=== PATIENT | female | born 1950 | race Caucasian/White ===

== ENCOUNTER → 2016-05-24 | Outpatient (CLI) | payer OTHER ==
[~2016-05-24] MED LIST: AMITRIPTYLINE H25 M2 PO; AMITRIPTYLINE H50 M2 PO; ATIVAN0.5 MG PO; BENICAR20 MG PO; CELEXA40 MG PO; CLEOCIN HCL300 MG PO; COZAAR100 MG PO; DULERA 200 MCG/13 GM; ESTRACE0.5 MG PO; ESTROGEL TOP; HYDROCODONE-APA1 TA1 PO; KLOR-CON 1010 MEQ PO; LEXAPRO20 MG PO; LORTAB 5 MG/5001 TA1 PO; LOSARTAN POTAS100 MG PO; NEXIUM20 MG PO; PANTOPRAZOLE SO40 M1 PO; PERCOCET 5-3251 EACH PO; PERCOCET PO; SANTYL OINTMENT30 G1 TOP; SILVADENE20 GM TOP; TESSALON PERLE100 MG PO; TRIAMTERENE-HC1 EAC1 PO; TRIAMTERENE/HCT1 CA1 PO; ZOCOR 20 MG TAB20 M1 PO; ZOCOR20 MG PO
== END ==
LOC: CAT 15:09
DX: R42 Dizziness and giddiness (principal); H44.529 Atrophy of globe, unspecified eye

== ENCOUNTER → 2016-07-31 | Outpatient (CLI) | payer OTHER | LOC: HYPER 07-26 12:43 | DX: T81.31XD Disruption of external operation (surgical) wound, not elsewhere classified, subsequent encounter (principal); M17.11 Unilateral primary osteoarthritis, right knee; Z90.710 Acquired absence of both cervix and uterus; Z87.891 Personal history of nicotine dependence; Z72.89 Other problems related to lifestyle; Y83.8 Other surgical procedures as the cause of abnormal reaction of the patient, or of later complication, without mention of misadventure at the time of the procedure ==

== ENCOUNTER → 2016-08-18 | Outpatient (CLI) | payer OTHER | LOC: ULTRA 13:52 | DX: K80.20 Calculus of gallbladder without cholecystitis without obstruction (principal); N26.1 Atrophy of kidney (terminal); N28.1 Cyst of kidney, acquired; R79.89 Other specified abnormal findings of blood chemistry; R94.4 Abnormal results of kidney function studies ==

== ENCOUNTER → 2016-08-23 | Outpatient (CLI) | payer OTHER | LOC: HYPER 07:07 | DX: T81.31XA Disruption of external operation (surgical) wound, not elsewhere classified, initial encounter (principal); M17.11 Unilateral primary osteoarthritis, right knee; Z72.89 Other problems related to lifestyle; Y83.8 Other surgical procedures as the cause of abnormal reaction of the patient, or of later complication, without mention of misadventure at the time of the procedure ==

== ENCOUNTER → 2016-08-25 | Outpatient (CLI) | payer OTHER | LOC: ULTRA 13:04 | DX: H53.9 Unspecified visual disturbance (principal) ==

== ENCOUNTER → 2016-08-31 | Outpatient (CLI) | payer OTHER | LOC: HYPER 07:08 | DX: T81.31XD Disruption of external operation (surgical) wound, not elsewhere classified, subsequent encounter (principal); M17.11 Unilateral primary osteoarthritis, right knee; Z90.710 Acquired absence of both cervix and uterus; Z87.891 Personal history of nicotine dependence; Z72.89 Other problems related to lifestyle; Y83.8 Other surgical procedures as the cause of abnormal reaction of the patient, or of later complication, without mention of misadventure at the time of the procedure | CPT/HCPCS: 56524 ==

== ENCOUNTER → 2016-09-06 | Outpatient (CLI) | payer OTHER | LOC: HYPER 07:11 | DX: T81.31XD Disruption of external operation (surgical) wound, not elsewhere classified, subsequent encounter (principal); S82.852D Displaced trimalleolar fracture of left lower leg, subsequent encounter for closed fracture with routine healing; M17.11 Unilateral primary osteoarthritis, right knee; Z72.89 Other problems related to lifestyle; X58.XXXD Exposure to other specified factors, subsequent encounter; Y83.8 Other surgical procedures as the cause of abnormal reaction of the patient, or of later complication, without mention of misadventure at the time of the procedure ==

== ENCOUNTER → 2016-09-13 | Outpatient (CLI) | payer OTHER | LOC: HYPER 07:05 | DX: T81.31XA Disruption of external operation (surgical) wound, not elsewhere classified, initial encounter (principal); S82.852D Displaced trimalleolar fracture of left lower leg, subsequent encounter for closed fracture with routine healing; S91.302D Unspecified open wound, left foot, subsequent encounter; M17.11 Unilateral primary osteoarthritis, right knee; F15.90 Other stimulant use, unspecified, uncomplicated; Z72.89 Other problems related to lifestyle; W19.XXXD Unspecified fall, subsequent encounter; Y83.8 Other surgical procedures as the cause of abnormal reaction of the patient, or of later complication, without mention of misadventure at the time of the procedure ==

== ENCOUNTER → 2016-10-10 | Outpatient (CLI) | payer OTHER | LOC: HYPER 07:16 | DX: T81.31XD Disruption of external operation (surgical) wound, not elsewhere classified, subsequent encounter (principal); M17.11 Unilateral primary osteoarthritis, right knee; Z87.891 Personal history of nicotine dependence; Z72.89 Other problems related to lifestyle; Z90.710 Acquired absence of both cervix and uterus; Y83.8 Other surgical procedures as the cause of abnormal reaction of the patient, or of later complication, without mention of misadventure at the time of the procedure ==

== ENCOUNTER → 2016-11-06 | Outpatient (CLI) | payer OTHER | LOC: HYPER 06:58 | DX: T81.31XD Disruption of external operation (surgical) wound, not elsewhere classified, subsequent encounter (principal); S91.302D Unspecified open wound, left foot, subsequent encounter; S82.852D Displaced trimalleolar fracture of left lower leg, subsequent encounter for closed fracture with routine healing; M17.11 Unilateral primary osteoarthritis, right knee; Z72.89 Other problems related to lifestyle; Z90.710 Acquired absence of both cervix and uterus; X58.XXXD Exposure to other specified factors, subsequent encounter; Y83.8 Other surgical procedures as the cause of abnormal reaction of the patient, or of later complication, without mention of misadventure at the time of the procedure ==

== ENCOUNTER → 2017-03-02 | Outpatient (CLI) | payer OTHER | LOC: ULTRA 14:25 | DX: R22.41 Localized swelling, mass and lump, right lower limb (principal) ==

== ENCOUNTER → 2017-05-31 | Outpatient (CLI) | payer OTHER ==
[~2017-05-31] MED LIST changes: +ACETAMINOPHEN-1 EAC1 PO; +NORCO 5-325 TA1 EACH PO; +WELLBUTRIN SR150 MG PO
== END ==
LOC: RAD 09:46
DX: M47.894 Other spondylosis, thoracic region (principal); M41.84 Other forms of scoliosis, thoracic region

== ENCOUNTER 2017-06-05 16:32 | Inpatient (IN) | payer OTHER ==
[~2017-06-05] VITALS: Ht 152.4 cm; Wt 63.6 kg
--- NOTE | ~2017-06-05 | HC ---
[facility] [place] [address] CONSULTATION Name: ALEXANDRIA SMITH Room #: 241-P [facility] IN M.R.#: [id number] Admission: 06/05/17 Attend Phys: Loco Sullivan MD Discharge: Date of : 48 Report #: [id number] THIS REPORT FOR: //name// CC: Lb Sullivan DATE OF SERVICE: 06/09/2017 REFERRING PHYSICIAN: Dr. Loco Sullivan. REASON FOR REFERRAL: Acute respiratory failure. HISTORY OF PRESENT ILLNESS: The patient is a 66-year-old white female who was admitted on 06/05/2017 following a fall. She was found to be in acute on chronic renal failure with severe metabolic acidosis, along with altered mental status. With ongoing respiratory distress, a Pulmonary consultation was requested. The patient is known to this physician. She has been seen in the office in the past for I believe asthma. She has not been seen over the last several months. The patient has never smoked. Review of the records showed that patient has had few hospitalizations in the past where she presents with renal insufficiency along with metabolic acidosis. She has a history of multidrug abuse including cocaine, marijuana, and alcohol. On this occasion, the patient was found to be down on the bedroom. She apparently fell. It is unclear how long the patient has laid on the floor. She has had trouble with falls in the past. Since hospitalization, the patient was found to have rhabdomyolysis with elevated CPK, acute on chronic renal failure requiring hemodialysis. Profound metabolic acidosis that has improved somewhat. Since hospital stay, she remains encephalopathic, confused, tachypneic. Earlier today, she started to develop bronchospasm. At present, I am not able to obtain much history. She is awake. She appears to be in mild distress. PAST MEDICAL HISTORY: As mentioned above including long history of hypertension, chronic kidney disease, history of polysubstance abuse including cocaine, alcohol, and marijuana. 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 She is followed longitudinally by renal service, history of multiple falls sustaining bilateral ankle fractures, closed head trauma. [facility] [address] [place] [address] CONSULTATION Name: ALEXANDRIA SMITH Room #: 241-P [facility] IN M.R.#: [id number] Admission: 06/05/17 Attend Phys: Loco Sullivan MD Discharge: Date of : 48 Report #: [id number] PAST SURGICAL HISTORY: Include cholecystectomy, prior bone marrow biopsy, past knee surgery, and bilateral breast reduction surgery. ALLERGIES: PENICILLIN, WHICH CAUSES HIVES. CURRENT MEDICATIONS: List reviewed. These include meropenem, Levaquin, thiamine, multivitamins, lorazepam. FAMILY HISTORY: Notable for hypertension in the father. SOCIAL HISTORY: She is , lives alone. She has children. Polysubstance abuse as mentioned above. REVIEW OF SYSTEMS: Deferred as the patient is confused. PHYSICAL EXAMINATION: GENERAL: She is awake, appears mildly tachypneic. VITAL SIGNS: Temperature is 97.8 degrees Fahrenheit, pulse is 110, respiratory rate is 26, blood pressure is 165/99 mmHg, saturations 100%. HEENT: Normocephalic, atraumatic. NECK: Supple without any lymphadenopathy or thyromegaly. CHEST: Breath sounds are fair with bilateral expiratory wheezes. Few scattered crackles. CARDIOVASCULAR: Normal S1, S2. No murmurs or gallop. There is no JVD. There is no carotid bruit. Pulses are 2+/4+ bilaterally. BREASTS: Exam is deferred. ABDOMEN: Mildly distended, soft, nontender. No organomegaly or masses felt. GENITOURINARY: Deferred. RECTAL: Deferred. EXTREMITIES: There is no edema, cyanosis or clubbing. LABORATORY DATA: Portable chest x-ray shows increased bilateral perihilar interstitial markings suggestive of congestive heart failure. This appears to be new since admission. Her recent CT abdomen and pelvis on admission shows fluid-filled mildly distended small bowel along with mild fluid filled nondistended colon suggestive of ileus. Hepatitis B screen was negative for hepatitis B surface antigen, surface antibody. Ammonia 17. IgG level was moderately low. C. diff toxin is negative. Hepatitis A is negative. Hepatitis C is negative. Stools for cultures so far has been negative. TSH is normal. Vitamin B12 is mildly elevated. Sodium 146, potassium 2.5, chloride 103, CO2 25, BUN is 14, creatinine is 1.4. On admission, creatinine was 6.5. Glucose 92. Liver function enzymes remains mildly elevated. Albumin 2.0. WBC 12,900, hemoglobin is 9.5, platelets are normal. No significant bandemia. Initial CPK was 9900, yesterday was 2500. Arterial blood gas on admission revealed pH 7.20, pCO2 of 16, pO2 of 103 on 2 liters of O2. Today, arterial blood gas shows pH [facility] [address] [place] [address] CONSULTATION Name: SIGHT,ALEXANDRIA Room #: 241-P ADM IN Geeta.Christophe.#: [id number] Admission: 06/05/17 Attend Phys: Loco Sullivan MD Discharge: Date of : 48 Report #: [id number] 7.56, pCO2 26, pO2 57 on 2 liters. Urine drug screen was positive for opiates. Alcohol level was less than 0. Urine drug screen: Cocaine was negative, along with negative for marijuana. IMPRESSION: 1. Acute hypoxic respiratory failure in this 66-year-old white female with multiple medical problems including metabolic acidosis along with acute on chronic renal failure. Chest x-ray shows increased interstitial marking suggestive of pulmonary edema. She has a history of asthma. Etiology likely related to pulmonary edema due to renal failure. Exacerbation of asthma is likely contributing. 2. Acute kidney injury/chronic kidney disease, underwent recent dialysis. 3. Metabolic acidosis improving with anion gap. 4. Rhabdomyolysis. 5. Elevated liver function enzymes, likely due to alcoholic liver disease. 6. 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 7. Polysubstance abuse including cocaine, alcohol, and marijuana. 8. Encephalopathy, multifactorial due to polysubstance abuse along with underlying sepsis syndrome. 9. Hypokalemia. 10. Severe protein-calorie malnutrition. 11. Long history of hypertension. 12. History of multiple falls, likely multifactorial, concerning is patient lives independently by herself. RECOMMENDATION: Agree with diuresis. May need hemodialysis if she does not respond to diuretics. Would also start corticosteroids and bronchodilators for presumed asthma exacerbation. We will continue alcohol withdrawal prophylaxis. Follow CPK along with renal function closely. DVT and GI prophylaxis will be addressed. Eventually, nutritional support will also need to be addressed. Thank you for this consultation. <ELECTRONICALLY SIGNED> By: Rafi Lowe MD 06/10/17 1602 [id number] MD cristóbal Miller
--- NOTE | ~2017-06-05 | HC ---
[facility] [place] [address] CONSULTATION Name: ALEXANDRIA SMITH Room #: 241-P ADM IN M.R.#: [id number] Admission: 06/05/17 Attend Phys: Loco Sullivan MD Discharge: Date of : 48 Report #: [id number] THIS REPORT FOR: //name// CC: Lb Sullivan REASON FOR PRESENTATION: Found down by her family members. REASON FOR CONSULTATION: Acute kidney injury. HISTORY OF PRESENT ILLNESS: This is a chronic kidney disease patient who sees Dr. Smith in my clinic. 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 She was evaluated numerous times by my team members back in June and in July 2016. She had a similar presentation in which she was found then to have an acute kidney injury with an elevated anion gap and managed accordingly. She has chronic hypertension. Baseline creatinine in the outpatient setting is around 2.5. Family brought her because of the details of the above-mentioned issues. On presentation, she was found to have a very high anion gap acidosis with high BUN and creatinine and was admitted for further evaluation and management. PAST MEDICAL HISTORY: 1. Repeated episodes of acute kidney injury. 2. Hypertension. 3. History of drug abuse. 4. Remote history of pancreatitis. 5. Iron-deficiency anemia. 6. Bone marrow biopsy. 7. Anemia. 8. Status post hysterectomy. 9. Knee surgery. 10. Bilateral reduction mammoplasties. ALLERGIES: PENICILLIN. FAMILY HISTORY: Father of hypertension. SOCIAL HISTORY: She is . No reported smoking, remote history of drug and alcohol abuse. REVIEW OF SYSTEMS: Unobtainable, the patient is currently disoriented x3. CURRENT MEDICATIONS: 1. Famotidine. 2. Lorazepam. 3. Meropenem. 4. Sodium bicarbonate. [facility] [address] [place] [address] CONSULTATION Name: ALEXANDRIA SMITH Room #: 241-P [facility] IN M.Christophe.#: [id number] Admission: 06/05/17 Attend Phys: Loco Sullivan MD Discharge: Date of : 48 Report #: [id number] PHYSICAL EXAMINATION: GENERAL: She is disoriented x3. VITAL SIGNS: There are some low blood pressure readings, temperature 37.2. HEAD AND NECK: No jugular venous distention, dry mucous membrane. CHEST: Decreased air entry bilaterally. CARDIOVASCULAR: Regular with no rub. ABDOMEN: Diffusely distended and tender. LOWER EXTREMITIES: No edema. LABORATORY VALUES: Reviewed. White blood cell count 13.4, hemoglobin 9.4. Blood gas pending. Sodium 129, potassium 3.4, chloride 93, carbon dioxide 11, BUN 106, creatinine 6.5. AST 290, ALT 169. IMAGING: Chest x-ray reviewed, no acute finding. ASSESSMENT, IMPRESSION, AND PLAN: 1. Acute kidney injury. 2. Rhabdomyolysis. 3. Stat labs. 4. Stat blood gas. 5. Stat CT abdomen and pelvis given her abdominal distention. 6. Continue with the bicarb drip for now. 7. Antibiotics per ID and primary team. Cultures were obtained. 8. Based on her blood gas and laboratory values, I will decide whether to escalate her care to an Intensive Care Unit or not. She seems to be critically ill. <ELECTRONICALLY SIGNED> By: Kamala Byrd MD 06/10/17 1703 [id number] Kamala Byrd MD /nt
--- NOTE | ~2017-06-05 | HC ---
[facility] [place] [address] CONSULTATION Name: ALEXANDRIA SMITH Room #: 241-P [facility] IN M.R.#: [id number] Admission: 06/05/17 Attend Phys: Loco Sullivan MD Discharge: 06/14/17 Date of : 48 Report #: [id number] THIS REPORT FOR: //name// CC: Lb Sullivan DATE OF SERVICE: 06/14/2017 HISTORY OF PRESENT ILLNESS: The patient is a 66-year-old white female admitted to [facility] with acute mental status changes, falls, was lying on the floor for questionable duration. She was noted to have acute renal insufficiency with severe metabolic acidosis and rhabdomyolysis. She was quite agitated and confused. She was seen by Neurology and diagnosed with a metabolic encephalopathy. She was seen by Nephrology and underwent one episode of dialysis to correct her acidosis. MRI of the brain is negative. She was noted to have a shock liver. Neurology has been involved regarding her encephalopathy, which is gradually improving. 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 She continues in the ICU, is gradually improving. We are seeing her in rehabilitation medicine consultation. She was noted to have some pulmonary edema, which has improved/resolved. Hypertension is much better on clonidine and amlodipine. She has elevated liver function tests, which are being followed by Gastroenterology. PAST MEDICAL HISTORY: Bilateral breast reduction. She had an infected right finger six years ago. She has had a hysterectomy. MEDICATIONS: Please see the full medication listing. HABITS: No history of tobacco abuse. She has had a prior history of alcohol abuse. Last time had alcohol about 60 days ago. There was a note of history of some cocaine abuse. There is a past history of alcohol use as noted above. ALLERGIES: PENICILLIN. SOCIAL HISTORY: She lives alone, house. Gait has been without gait aids. She had an ankle fracture approximately a year ago and used a wheelchair for the first 6 months, then used a walker and has not been utilizing anything, most recently. There are 2 steps in. REVIEW OF SYSTEMS: No current complaints of chest pain, shortness of breath, abdominal discomfort. Main complaint is significant weakness, upper and lower extremities and inability to ambulate. No focal extremity pain complaints. PHYSICAL EXAMINATION: [facility] [address] [place] [address] CONSULTATION Name: ALEXANDRIA SMITH Room #: 241-P [facility] IN M.R.#: [id number] Admission: 06/05/17 Attend Phys: Loco Sullivan MD Discharge: 06/14/17 Date of : 48 Report #: [id number] GENERAL: She is a pleasant 66-year-old, thin statured white female, in no obvious distress. VITAL SIGNS: Temperature is 97.6, pulse 79, respirations 11, blood pressure 162/80. NEUROLOGIC: She is alert. She could tell me the place and the year and she will follow basic 1 step commands. There is still some latency to her responses. Facies appeared symmetric. EXTREMITIES: Functional range of motion of both upper extremities. Appears to have some weakness of her left hand ulnar intrinsics probably a grade 4-. Left upper extremity proximally is more of a grade 4, right upper extremity is more of a grade 4. Lower extremity strength is probably a grade 3+/5. DTRs are trace to 1. There is no focal calf swelling. No distal lower extremity edema. She is mod assist with sit to stand, has decreased balance. ASSESSMENT: A 66-year-old white female with the following problem list: 1. Improving multifactorial encephalopathy thought to be toxic metabolic. 2. Critical illness myopathy. 3. Severe metabolic acidosis. 4. Rhabdomyolysis. 5. Shock liver. 6. 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 Left ulnar nerve per Neurology. 7. Aspiration. 8. Hypertension. 9. Acute renal insufficiency with creatinine improving. PLAN: The patient would be a good inpatient rehabilitation candidate as she further medically stabilizes. She is continuing in the Intensive Care Unit for now, but we will follow along regarding her rehab therapy progress. She appears amenable to an acute inpatient rehabilitation stay when further medically stabilized and cleared for transfer up to the [facility]hab [facility]. We will be glad to follow along with you. <ELECTRONICALLY SIGNED> By: Gerald Brown MD 06/19/17 1553 [id number] Gerald Brown MD /[facility]
[~2017-06-05 16:32] MED LIST changes: -ACETAMINOPHEN-1 EAC1 PO; -NORCO 5-325 TA1 EACH PO; -WELLBUTRIN SR150 MG PO
[2017-06-05 16:39] VITALS: BP 86/37
[2017-06-05 17:56] LABS: ABSOLUTE NEUTROPHILS 12.3 thou/uL (1.4-8.2); BASOPHILS 0.2 % (0.0-2.0); EOSINOPHILS 0.1 % (0.0-3.0); HEMATOCRIT 28.8 % (37.0-47.0); HEMOGLOBIN 9.4 gm/dL (12.0-15.0); LYMPHOCYTES 2.4 % (24.0-44.0); MCH 31.2 pg (26.0-34.0); MCHC 32.8 g/dL (28.0-37.0); MCV 95.2 fL (80.0-100.0); PLATELET COUNT 407 thou/uL (150-400); POLYS 91.3 % (36.0-66.0); RBC 3.02 mil/uL (4.20-5.00); RDW 18.4 % (10.5-14.5); WBC 13.4 thou/uL (4.0-11.0)
[2017-06-05 18:06] LABS: CREATININE 6.5 mg/dL (0.6-1.0); POTASSIUM 3.4 mmol/L (3.5-5.1)
[2017-06-05 18:12] LABS: ALBUMIN 3.1 g/dL (3.4-5.0); DIRECT BILIRUBIN 0.1 mg/dL (<0.1-0.3); TOTAL BILIRUBIN 0.5 mg/dL (<0.1-1.0); TOTAL PROTEIN 6.8 g/dL (6.4-8.2)
[2017-06-05 19:22] LABS: URINE BILIRUBIN NEGATIVE (Negative); URINE BLOOD 2+ (Negative); URINE CLARITY CLEAR; URINE COLOR YELLOW; URINE GLUCOSE-RANDOM* NEGATIVE (Negative); URINE KETONES NEGATIVE (Negative); URINE LEUKOCYTES-REFLEX NEGATIVE (Negative); URINE NITRITE-REFLEX NEGATIVE (Negative); URINE PROTEIN (DIPSTICK) NEGATIVE (Negative); URINE UROBILINOGEN 0.2 E.U./dl (0.2-1.0)
[2017-06-05 19:31] LABS: AMP/METHAMP Negative (Negative); BARBITURATES Negative (Negative); BENZODIAZEPINES Negative (Negative); COCAINE Negative (Negative); METHADONE Negative (Negative); OPIATES POSITIVE (Negative); PCP Negative (Negative)
[2017-06-05 19:34] LABS: HYALINE CASTS 0-3 Few /LPF (None Seen); MUCUS 0-3 Light strn/LPF (None Seen); SQUAMOUS 0-3 Few /LPF (0-3)
[2017-06-05 19:35] LABS: BACTERIA-REFLEX 1-9 Few /HPF (None Seen); URINE RBC 0-2 Rare /HPF (0-2); URINE WBC-REFLEX None Seen /HPF (0-5)
[2017-06-05 19:38] LABS: AMORPHOUS URATES Few /LPF (None Seen)
[2017-06-05 20:52] VITALS: BP 105/42
[2017-06-05 21:35] VITALS: BP 109/50
[2017-06-05 23:56] VITALS: BP 91/47
[2017-06-06] VITALS (53 sets, daily range): BP systolic 71–201; BP diastolic 32–172
[2017-06-06 07:38] LABS: HEMATOCRIT 26.5 % (37.0-47.0); HEMOGLOBIN 8.8 gm/dL (12.0-15.0); MCH 31.5 pg (26.0-34.0); MCHC 33.1 g/dL (28.0-37.0); MCV 95.2 fL (80.0-100.0); RBC 2.78 mil/uL (4.20-5.00); RDW 18.7 % (10.5-14.5); WBC 4.8 thou/uL (4.0-11.0)
[2017-06-06 07:46] LABS: CALCIUM 7.2 mg/dL (8.5-10.1); CREATININE 6.7 mg/dL (0.6-1.0); POTASSIUM 3.4 mmol/L (3.5-5.1)
[2017-06-06 07:50] LABS: ALBUMIN 2.5 g/dL (3.4-5.0); TOTAL BILIRUBIN 0.4 mg/dL (<0.1-1.0)
[2017-06-06 08:59] LABS: BE(vivo) -19.8 mmol/L (-2 to +3); HCO3 6.2 mmol/L (22.0-26.0); PCO2 16.3 mmHg (35.0-45.0); PO2 103.8 mmHg (80.0-100.0); pH 7.201 (7.360-7.450); sO2 96.7 % (92.0-98.0)
[2017-06-06 10:56] LABS: APTT 34.6 Seconds (24.5-32.8); INR 1.1
[2017-06-06 12:29] LABS: BE(vivo) -19.7 mmol/L (-2 to +3); HCO3 6.8 mmol/L (22.0-26.0); PCO2 18.7 mmHg (35.0-45.0); PO2 110.2 mmHg (80.0-100.0); pH 7.178 (7.360-7.450)
[2017-06-06 13:11] LABS: ALBUMIN 2.4 g/dL (3.4-5.0); CALCIUM 6.8 mg/dL (8.5-10.1); CREATININE 6.2 mg/dL (0.6-1.0); POTASSIUM 3.4 mmol/L (3.5-5.1); TOTAL BILIRUBIN 0.3 mg/dL (<0.1-1.0)
[2017-06-07] VITALS (36 sets, daily range): BP systolic 97–156; BP diastolic 49–103
[2017-06-07 05:30] LABS: HEMATOCRIT 24.5 % (37.0-47.0); HEMOGLOBIN 8.6 gm/dL (12.0-15.0); MCH 31.9 pg (26.0-34.0); MCV 91.1 fL (80.0-100.0); RBC 2.69 mil/uL (4.20-5.00); RDW 17.9 % (10.5-14.5); WBC 10.1 thou/uL (4.0-11.0)
[2017-06-07 05:43] LABS: CALCIUM 7.7 mg/dL (8.5-10.1); POTASSIUM 3.1 mmol/L (3.5-5.1); TOTAL BILIRUBIN 0.3 mg/dL (<0.1-1.0); TOTAL PROTEIN 5.6 g/dL (6.4-8.2)
[2017-06-07 05:45] LABS: CREATININE 1.2 mg/dL (0.6-1.0)
[2017-06-07 07:52] LABS: MAGNESIUM 1.7 mg/dL (1.8-2.4)
[2017-06-07 18:12] LABS: HEP B SURFACE Ab(ANTI-HBS Non Reactive (()); HEPATITIS B SURFACE AG Negative (Negative)
[2017-06-07 18:42] LABS: % SATURATION 6 % (20-39); IRON 13 ug/dL (50-170); TIBC 210 ug/dL (250-450)
[2017-06-08] VITALS (24 sets, daily range): BP systolic 127–172; BP diastolic 68–102
[2017-06-08 05:32] LABS: DIRECT BILIRUBIN < 0.1 mg/dL (<0.1-0.3); SGOT 149 U/L (15-37); SGPT 118 U/L (30-65); TOTAL BILIRUBIN 0.3 mg/dL (<0.1-1.0); TOTAL PROTEIN 5.4 g/dL (6.4-8.2)
[2017-06-08 05:43] LABS: ALBUMIN 2.1 g/dL (3.4-5.0); CREATININE 1.7 mg/dL (0.6-1.0); PHOSPHORUS 2.1 mg/dL (2.5-4.9)
[2017-06-08 05:54] LABS: POTASSIUM 2.7 mmol/L (3.5-5.1)
[2017-06-08 08:07] LABS: HAV IgM AB (ANTI-HAV IgM) Negative (Negative); HEPATITIS C VIRUS AB <0.1 (0.0-0.9)
[2017-06-08 12:08] LABS: HEMATOCRIT 27.1 % (37.0-47.0); HEMOGLOBIN 8.9 gm/dL (12.0-15.0); MCH 30.4 pg (26.0-34.0); MCHC 32.9 g/dL (28.0-37.0); MCV 92.4 fL (80.0-100.0); RBC 2.93 mil/uL (4.20-5.00); RDW 17.9 % (10.5-14.5)
[2017-06-09] VITALS (26 sets, daily range): BP systolic 146–175; BP diastolic 94–122
[2017-06-09 05:11] LABS: CALCIUM 7.6 mg/dL (8.5-10.1); CREATININE 1.4 mg/dL (0.6-1.0); PHOSPHORUS 2.2 mg/dL (2.5-4.9)
[2017-06-09 05:13] LABS: POTASSIUM 2.5 mmol/L (3.5-5.1)
[2017-06-09 10:07] LABS: HEMATOCRIT 27.6 % (37.0-47.0); MCH 30.6 pg (26.0-34.0); MCHC 32.7 g/dL (28.0-37.0); MCV 93.6 fL (80.0-100.0); RBC 2.95 mil/uL (4.20-5.00); WBC 12.5 thou/uL (4.0-11.0)
[2017-06-09 12:23] LABS: BE(vivo) 2.1 mmol/L (-2 to +3); HCO3 23.5 mmol/L (22.0-26.0); PCO2 26.3 mmHg (35.0-45.0); PO2 57.4 mmHg (80.0-100.0); pH 7.569 (7.360-7.450); sO2 93.8 % (92.0-98.0)
[2017-06-09 12:27] LABS: HEMATOCRIT 29.1 % (37.0-47.0); HEMOGLOBIN 9.5 gm/dL (12.0-15.0); MCH 30.5 pg (26.0-34.0); MCHC 32.7 g/dL (28.0-37.0); MCV 93.3 fL (80.0-100.0); PLATELET COUNT 375 thou/uL (150-400); RBC 3.12 mil/uL (4.20-5.00); RDW 18.1 % (10.5-14.5); WBC 12.9 thou/uL (4.0-11.0)
[2017-06-09 12:56] LABS: ANISOCYTOSIS 2+; ATYPICAL LYMPHS 1 %; POLYCHROMASIA OCCASIONAL
[2017-06-09 13:04] LABS: ABSOLUTE NEUTROPHILS 9.4 thou/uL (1.4-8.2)
[2017-06-09 13:09] LABS: TSH 2.016 uIU/mL (0.358-3.740)
[2017-06-10] VITALS (12 sets, daily range): BP systolic 148–184; BP diastolic 95–141
[2017-06-10 05:22] LABS: BE(vivo) 1.7 mmol/L (-2 to +3); HCO3 23.8 mmol/L (22.0-26.0); PCO2 28.6 mmHg (35.0-45.0); pH 7.538 (7.360-7.450); sO2 92.4 % (92.0-98.0)
[2017-06-10 05:23] LABS: PO2 54.9 mmHg (80.0-100.0)
[2017-06-10 06:24] LABS: HEMATOCRIT 28.2 % (37.0-47.0); HEMOGLOBIN 9.2 gm/dL (12.0-15.0); MCH 30.3 pg (26.0-34.0); MCHC 32.4 g/dL (28.0-37.0); MCV 93.4 fL (80.0-100.0); RBC 3.02 mil/uL (4.20-5.00); RDW 18.2 % (10.5-14.5); WBC 9.2 thou/uL (4.0-11.0)
[2017-06-10 06:34] LABS: ALBUMIN 2.5 g/dL (3.4-5.0); CREATININE 1.8 mg/dL (0.6-1.0)
[2017-06-10 06:38] LABS: POTASSIUM 2.9 mmol/L (3.5-5.1)
[2017-06-11] VITALS (25 sets, daily range): BP systolic 129–172; BP diastolic 73–107
[2017-06-11 04:37] LABS: ALBUMIN 2.4 g/dL (3.4-5.0); CALCIUM 7.6 mg/dL (8.5-10.1); PHOSPHORUS 2.8 mg/dL (2.5-4.9); POTASSIUM 3.7 mmol/L (3.5-5.1)
[2017-06-11 05:44] LABS: HEMATOCRIT 27.6 % (37.0-47.0); MCH 30.7 pg (26.0-34.0); MCHC 32.5 g/dL (28.0-37.0); MCV 94.3 fL (80.0-100.0); RBC 2.92 mil/uL (4.20-5.00); RDW 18.4 % (10.5-14.5); WBC 9.5 thou/uL (4.0-11.0)
[2017-06-12] VITALS (24 sets, daily range): BP systolic 97–150; BP diastolic 62–101
[2017-06-12 05:34] LABS: ALBUMIN 2.2 g/dL (3.4-5.0); CALCIUM 7.1 mg/dL (8.5-10.1); CREATININE 1.7 mg/dL (0.6-1.0); PHOSPHORUS 3.8 mg/dL (2.5-4.9)
[2017-06-12 05:52] LABS: POTASSIUM 2.8 mmol/L (3.5-5.1)
[2017-06-12 10:06] LABS: ALBUMIN 2.3 g/dL (3.4-5.0); DIRECT BILIRUBIN < 0.1 mg/dL (<0.1-0.3); SGOT 26 U/L (15-37); SGPT 58 U/L (30-65); TOTAL BILIRUBIN 0.2 mg/dL (<0.1-1.0); TOTAL PROTEIN 4.9 g/dL (6.4-8.2)
[2017-06-13] VITALS (23 sets, daily range): BP systolic 112–181; BP diastolic 50–113
[2017-06-13 05:43] LABS: MAGNESIUM 1.1 mg/dL (1.8-2.4)
[2017-06-13 05:44] LABS: ALBUMIN 2.3 g/dL (3.4-5.0); CALCIUM 7.2 mg/dL (8.5-10.1); CREATININE 1.6 mg/dL (0.6-1.0); PHOSPHORUS 3.5 mg/dL (2.5-4.9); POTASSIUM 4.2 mmol/L (3.5-5.1); TOTAL BILIRUBIN 0.3 mg/dL (<0.1-1.0); TOTAL PROTEIN 4.9 g/dL (6.4-8.2)
[2017-06-14 00:03] VITALS: BP 139/92
[2017-06-14 01:00] VITALS: BP 122/74
[2017-06-14 02:00] VITALS: BP 137/83
[2017-06-14 03:00] VITALS: BP 151/73
[2017-06-14 04:39] LABS: ALBUMIN 2.5 g/dL (3.4-5.0); CALCIUM 8.1 mg/dL (8.5-10.1); CREATININE 1.4 mg/dL (0.6-1.0); PHOSPHORUS 3.7 mg/dL (2.5-4.9); PHOSPHORUS 3.8 mg/dL (2.5-4.9); POTASSIUM 4.2 mmol/L (3.5-5.1)
[2017-06-14 05:00] VITALS: BP 152/80
== END 2017-06-14 16:15 | DRG 682 ==
LOC: ER 16:32 → 2N 20:00 → EROBS 20:00 → 2N 20:53 → ICU 06-06 08:43
PROVIDERS: Emergency Medicine; Family Medicine; Hospitalist; Internal Medicine Nephrology; Internal Medicine Pulmonary Disease; Nurse Practitioner; Psychiatry & Neurology Neurology
PROC: 02HV33Z Insertion of Infusion Device into Superior Vena Cava, Percutaneous Approach (ICD-10-PCS; principal; 2017-06-06)
PROC: B5181ZA Fluoroscopy of Superior Vena Cava using Low Osmolar Contrast, Guidance (ICD-10-PCS; principal; 2017-06-06)
PROC: 02HV33Z Insertion of Infusion Device into Superior Vena Cava, Percutaneous Approach (ICD-10-PCS; 2017-06-11)
PROC: B5181ZA Fluoroscopy of Superior Vena Cava using Low Osmolar Contrast, Guidance (ICD-10-PCS; 2017-06-11)
DX: N17.9 Acute kidney failure, unspecified (principal); J69.0 Pneumonitis due to inhalation of food and vomit; E43 Unspecified severe protein-calorie malnutrition; K72.00 Acute and subacute hepatic failure without coma; J96.01 Acute respiratory failure with hypoxia; G92 Toxic encephalopathy; E87.2 Acidosis; E86.0 Dehydration; N18.9 Chronic kidney disease, unspecified; I12.9 Hypertensive chronic kidney disease with stage 1 through stage 4 chronic kidney disease, or unspecified chronic kidney disease; Z60.2 Problems related to living alone; F14.10 Cocaine abuse, uncomplicated; F12.10 Cannabis abuse, uncomplicated; F10.10 Alcohol abuse, uncomplicated; E87.6 Hypokalemia; G72.89 Other specified myopathies; E83.42 Hypomagnesemia; D64.9 Anemia, unspecified; E11.22 Type 2 diabetes mellitus with diabetic chronic kidney disease; R19.7 Diarrhea, unspecified; F03.90 Unspecified dementia, unspecified severity, without behavioral disturbance, psychotic disturbance, mood disturbance, and anxiety; Z90.710 Acquired absence of both cervix and uterus; Z79.899 Other long term (current) drug therapy; Z88.0 Allergy status to penicillin; Z82.49 Family history of ischemic heart disease and other diseases of the circulatory system; Z28.21 Immunization not carried out because of patient refusal; Z68.27 Body mass index [BMI] 27.0-27.9, adult
CPT/HCPCS: 10078; 10081; 32110

== ENCOUNTER 2017-06-14 13:53 | Inpatient (IN) | payer OTHER ==
[~2017-06-14] VITALS: Ht 152.4 cm; Wt 59.2 kg
--- NOTE | ~2017-06-14 | HC ---
[facility] [place] [address] CONSULTATION Name: ALEXANDRIA SMITH Room #: 513-P [facility] IN M.R.#: [id number] Admission: 06/14/17 Attend Phys: Gerald Brown MD Discharge: Date of : 48 Report #: [id number] THIS REPORT FOR: //name// CC: Gerald Sullivan DATE OF SERVICE: 06/16/2017 NEUROBEHAVIORAL STATUS EXAMINATION ATTENDING PHYSICIAN: Gerald Brown M.D. BUDGET REPORT CLERK: Loco Alonso, PhD CLINICAL PRESENTATION: The patient is a 66-year-old female admitted to [facility] rehabilitation unit for a comprehensive inpatient rehabilitation program to improve functional mobility, activities of daily living and self-care and mental status secondary to critical illness myopathy and multifactorial encephalopathy thought to be of toxic metabolic origin. The patient was brought in through the Emergency Room. She was agitated and confused. Her son found her on the floor of her home. The length of time that she was unattended on the floor is of uncertain duration. The patient has had a brain MRI that was reported as negative. Her assessment on admission to rehab includes severe metabolic acidosis, rhabdomyolysis, shock liver, left upper extremity weakness, aspiration, hypertension and acute renal insufficiency. A complete description of her medical condition and history along with medications can be found in her medical record. Neuropsychological consultation was requested to provide assistance in the assessment of cognitive and emotional status and to provide our recommendations and services. The patient reports living independently in her own home. She indicates a prior history of alcohol abuse, but no alcohol use within the last several months. A remote history of cannabis use is described as well as cocaine abuse in her medical record. The patient is a college graduate. 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 She has 3 children. She reports having had 3 sisters. One sister has been visiting recently. TECHNIQUES UTILIZED: Clinical interview, review of medical records, staff consultation and behavioral observation, mini mental status exam 2 standard version, clock drawing and category fluency assessment. EXAMINATION FINDINGS: The patient was alert and cooperative with the assessment. She accurately described having several falls recently. However, the patient was unable to identify which fall has led to her current [facility] [address] [place] [address] CONSULTATION Name: ALEXANDRIA SMITH Room #: 513-P [facility] IN M.R.#: [id number] Admission: 06/14/17 Attend Phys: Gerald Brown MD Discharge: Date of : 48 Report #: [id number] hospitalization. There is no evidence of aphasia. Her thoughts are logical and goal oriented. There is no evidence of thought disorder. She does not report auditory or visual hallucinations. Her symptoms include; Tiredness and fatigue and difficulty with memory and word finding. She does not report difficulty with sleep or appetite. The patient denies feelings of anxiety. She was somewhat irritable during the assessment and is wanting to return home following her rehabilitation stay. The patient lacks insight into the severity of her cognitive disorder and difficulty that she might have with independent living. Her performance on the MMSE 2 brief version was extremely low with a raw score of 12/16, T score of 24, percentile rank of less than 1. She was 3/3 for initial registration, 5/5 for orientation to time, 4/[address] and 0/3 for immediate recall of 3 items after a brief time delay and distraction. Her performance on the MMSE 2 standard version was extremely low with a raw score of 22/30, T score 25 and percentile rank of 1. She was 2/5 for serial 7's, 2/2 for naming, 1/1 for repetition, 3/3 for auditory comprehension. She could read and follow single command and write a sentence. The patient had difficulty with copying a simple geometric design. Clock drawing was inaccurate. She was able to place the numbers and have adequate spatial organization. However, she set the hands at a time that was incorrect. Category fluency was in the borderline range with a T score of 33 and percentile rank of 4. [id number] deficits are suggested in verbal fluency. This type of presentation suggests deficits in immediate recall, sustained attention/concentration and executive functioning. The patient appears to lack insight into her cognitive deficits, which places her at an increased safety risk. DIAGNOSTIC IMPRESSION: Major neurocognitive disorder, unspecified, with decreased insight and intermittent irritability -- extent to be determined, likely in the mild to moderate range of cognitive impairment. Alcohol use disorder -- by history, in remission. Unspecified depressive disorder. RECOMMENDATIONS: The patient will benefit from a more thorough neuropsychological assessment upon discharge to clarify the extent of cognitive deficits. At this time, she will need assistance with medical, financial and nutritional [address] [address] CONSULTATION Name: ALEXANDRIA SMITH Room #: 513-P ADM IN M.R.#: [id number] Admission: 06/14/17 Attend Phys: Gerald Brown MD Discharge: Date of : 48 Report #: [id number] management. As indicated, decreased insight places her at an increased safety risk. The patient is showing performance on the mini mental status exam that is less than what it was during a previous assessment 12 months ago. Treatment program for depression along with verbal praise and complements about participation in therapies and progress will assist in obtaining her cooperation. Thank you very much for allowing me to provide the consultation on this patient. <ELECTRONICALLY SIGNED> By: Loco Alonso, PhD 06/17/17 1411 [id number] Loco Alonso, PhD /nt
--- NOTE | ~2017-06-14 | H ---
[facility] [place] [address] HISTORY AND PHYSICAL Name: ALEXANDRIA SMITH Room #: 513-P ADM IN M.R.#: [id number] Admission: 06/14/17 Attend Phys: Gerald Brown MD Discharge: Date of : 48 Report #: [id number] THIS REPORT FOR: //name// CC: Gerald Sullivan DATE OF SERVICE: 06/14/2017 HISTORY OF PRESENT ILLNESS: The patient is a 66-year-old female originally admitted to [facility] with acute mental status changes and falls. She was lying on the floor with questionable duration. She was noted to have an acute renal insufficiency with severe metabolic acidosis and rhabdomyolysis. She was quite agitated and confused. She was seen by Neurology and diagnosed with a metabolic encephalopathy. She was seen by Nephrology and underwent one episode of dialysis to correct her acidosis. MRI of the brain was negative. She was noted to have a shock liver. Neurology was involved regarding her encephalopathy, which was noted to be gradually improving. 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 Hypertension, improved on clonidine and amlodipine. She had some elevated liver function tests, thought to be consistent with shock liver with Gastroenterology involved. 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 Complicating her multifactorial encephalopathy. She was now felt to be ready and has been admitted for an acute in-hospital inpatient rehabilitation stay. PAST MEDICAL HISTORY: Includes bilateral breast reduction. She had an infected right finger six years ago. She has had a hysterectomy. MEDICATIONS: Please see the full medication listing. The medications include vitamins, herbals and supplements. HABITS: No history of tobacco abuse. She has had a prior history of alcohol abuse. Last time that she had alcohol was noted to be about 60 days ago. There is also a note of a history of some cocaine abuse. Past history of alcohol use is noted. ALLERGIES: PENICILLIN. SOCIAL HISTORY: Lives alone in a house. Gait was without gait aids. She had an ankle fracture about a year ago and used a wheelchair for the first 6 months, then used a walker and was not using any gait aids most recently. There are 2 steps in. REVIEW OF SYSTEMS: No current complaints of chest pain, shortness of breath, or abdominal discomfort. She does have significant weakness in upper and lower [address] [address] HISTORY AND PHYSICAL Name: ALEXANDRIA SMITH Room #: 513-P [facility] IN ..#: [id number] Admission: 06/14/17 Attend Phys: Gerald Brown MD Discharge: Date of : 48 Report #: [id number] extremities with inability to ambulate. PHYSICAL EXAMINATION: GENERAL: A pleasant 66-year-old white female, small statured no distress. VITAL SIGNS: Last recorded temperature 98.8, pulse 83, respirations 18, blood pressure 141/77. She is not on O2. NEUROLOGIC: The patient is alert. She can tell me the place. There continues to be a latency in her responses. She does need some cues, but will follow basic commands. HEENT: Appeared to be benign. CHEST: Sounded clear to auscultation. CARDIOVASCULAR: Regular rate and rhythm. ABDOMEN: Bowel sounds positive, nontender. GENITOURINARY AND RECTAL: Deferred. Functional range of motion of both upper extremities. She does have some weakness of the left hand ulnar intrinsics probably a grade 4-/5. Left upper extremity proximally is more of a grade 4/5. Right upper extremity is more of a grade 4. Lower extremity strength is grade 3+/5. DTRs are trace to 1. No distal lower extremity edema. No focal calf swelling. Functionally, she is mod assist with sit to stand. Gait is min assist 4 feet. ASSESSMENT: A 66-year-old white female with the following problem list: 1. Critical illness myopathy. 2. Improving multifactorial encephalopathy thought to be toxic metabolic. 3. Severe metabolic acidosis. 4. Rhabdomyolysis. 5. Shock liver. 6. 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 Left ulnar nerve per Neurology. 7. Aspiration. 8. Hypertension. 9. Acute renal insufficiency with creatinine improving. PLAN: The patient is admitted for acute in-hospital inpatient rehabilitation. From a postadmission physician evaluation perspective, there are no relevant changes since the preadmission screening. Please see the above review of prior and current medical and functional conditions and comorbidities. Please see the patient's previous and current functional status. As far as risk of complications, the patient has multiple medical comorbidities with decreased functional status. The initial plan of care involves the interdisciplinary acute inpatient rehabilitation program with the goal of maximizing her functional independence, so that she can return back to the home setting. Measurable functional goals would be for her to become modified and independent with transfers, mobility, ADLs as well as cognition, so that she can return back to the home setting. Prognosis is reasonably good with estimated length of stay probably at least 10 days to 2 weeks with pending progress. Potential barriers [address] [address] HISTORY AND PHYSICAL Name: ALEXANDRIA SMITH Room #: 513-P ADM IN M.Christophe.#: [id number] Admission: 06/14/17 Attend Phys: Gerald Brown MD Discharge: Date of : 48 Report #: [id number] would include her multiple medical comorbidities and decreased functional status. The patient meets diagnostic criteria for an acute in-hospital inpatient rehabilitation stay. She meets medical necessity criteria. She does have the tolerance for therapies. She has appropriate discharge goals back to the home setting. <ELECTRONICALLY SIGNED> By: Gerlad Brown MD 06/19/17 1553 [id number] Gerald Brown MD /[facility]
--- NOTE | ~2017-06-14 | PLAN ---
[facility] [place] [address] REHAB UNIT PLAN OF CARE Name: ALEXANDRIA SMITH Room #: 513-P ADM IN M.R.#: [id number] Admission: 06/14/17 Attend Phys: Gerald Brown MD Discharge: Date of : 48 Report #: [id number] THIS REPORT FOR: //name// CC: Gerald Hopeal Sullivan DATE OF SERVICE: 06/16/2017 The patient was seen back earlier. She was in no distress. Temperature last recorded at 36.6, pulse 80, respirations 15, blood pressure 145/83. She was in no distress. She was little sleepy when I saw her, but cooperative. Transfers have been mod assist. Gait has been mod assist 250 feet with a front-wheeled walker. In occupational therapy, lower body dressing has been mod assist. Speech therapy reveals mild to moderate comprehensive deficits. ASSESSMENT: 1. Critical illness myopathy. 2. Improving multifactorial encephalopathy thought to be toxic metabolic. 3. Severe metabolic acidosis. 4. Rhabdomyolysis. 5. Shock liver. 6. Left upper extremity weakness thought to be consistent with a compressive neuropathy involving the left ulnar nerve per Neurology. 7. Aspiration. 8. Hypertension. 9. Acute renal insufficiency with creatinine improving. PLAN: The overall plan of care is based on the preadmission screen, post-admission physician evaluation and information garnered from therapy assessments. 1. Estimated length of stay is probably at least 10 days to 2 weeks pending progress. 2. Medical prognosis is reasonably good. 3. Anticipated interventions includes the interdisciplinary acute inpatient rehabilitation program with goal of maximizing the patient's functional independence, so that she can hopefully return back to her prior living situation. 4. Anticipated functional outcomes would be for the patient to become modified independent with transfers, mobility and ADLs, so that she can hopefully return back to her prior living situation. 5. Discharge destination would be back to the home setting where she lives in a house alone. We will need to be further assessing for support and assistance for her. 6. Expected therapy by discipline includes PT and OT and speech 1 hour per day [address] [address] REHAB UNIT PLAN OF CARE Name: ALEXANDRIA SMITH Room #: 513-P ADM IN M.R.#: [id number] Admission: 06/14/17 Attend Phys: Gerald Brown MD Discharge: Date of : 48 Report #: [id number] each five days a week throughout the duration of the acute inpatient rehabilitation stay. <ELECTRONICALLY SIGNED> By: Gerald Brown MD 06/19/17 1553 [id number] Gerald Brown MD /[facility]
[2017-06-14 16:20] VITALS: BP 159/96
[2017-06-14 19:24] VITALS: BP 141/77
[2017-06-15 03:47] LABS: HEMATOCRIT 31.3 % (37.0-47.0); HEMOGLOBIN 9.8 gm/dL (12.0-15.0); MCHC 31.4 g/dL (28.0-37.0); MCV 95.4 fL (80.0-100.0); RBC 3.28 mil/uL (4.20-5.00); RDW 17.9 % (10.5-14.5); WBC 12.9 thou/uL (4.0-11.0)
[2017-06-15 03:58] LABS: CALCIUM 8.3 mg/dL (8.5-10.1); CREATININE 1.5 mg/dL (0.6-1.0); MAGNESIUM 1.5 mg/dL (1.8-2.4); POTASSIUM 4.2 mmol/L (3.5-5.1)
[2017-06-15 08:00] VITALS: BP 148/76
[2017-06-15 19:50] VITALS: BP 145/83
[2017-06-16 08:00] VITALS: BP 94/40
[2017-06-16 08:04] LABS: ALBUMIN 2.4 g/dL (3.4-5.0); CALCIUM 8.3 mg/dL (8.5-10.1); CREATININE 1.4 mg/dL (0.6-1.0); MAGNESIUM 1.7 mg/dL (1.8-2.4); POTASSIUM 4.2 mmol/L (3.5-5.1)
[2017-06-16 13:00] VITALS: BP 109/56
[2017-06-16 20:00] VITALS: BP 121/56
[2017-06-17 08:39] VITALS: BP 99/45
[2017-06-17 16:40] VITALS: BP 104/65
[2017-06-17 19:33] VITALS: BP 121/66
[2017-06-18 08:01] VITALS: BP 119/74
[2017-06-18 20:30] VITALS: BP 127/58
[2017-06-19 06:18] LABS: HEMOGLOBIN 9.2 gm/dL (12.0-15.0); MCH 31.5 pg (26.0-34.0); MCV 95.6 fL (80.0-100.0); RBC 2.92 mil/uL (4.20-5.00); RDW 18.1 % (10.5-14.5); WBC 10.6 thou/uL (4.0-11.0)
[2017-06-19 06:32] LABS: ALBUMIN 2.8 g/dL (3.4-5.0); CALCIUM 8.6 mg/dL (8.5-10.1); CREATININE 1.4 mg/dL (0.6-1.0); PHOSPHORUS 3.7 mg/dL (2.5-4.9); POTASSIUM 3.8 mmol/L (3.5-5.1)
[2017-06-19 06:33] LABS: ALBUMIN 2.7 g/dL (3.4-5.0); CALCIUM 8.6 mg/dL (8.5-10.1); CREATININE 1.3 mg/dL (0.6-1.0); POTASSIUM 3.8 mmol/L (3.5-5.1); TOTAL BILIRUBIN 0.2 mg/dL (<0.1-1.0); TOTAL PROTEIN 5.8 g/dL (6.4-8.2)
[2017-06-19 08:00] VITALS: BP 102/54
== END 2017-06-19 16:38 | disposition short-term general hospital (02) | DRG 91 ==
LOC: ENTRNSPT 06-19 16:11
PROVIDERS: Internal Medicine Nephrology; Nurse Practitioner; Physical Medicine & Rehabilitation
DX: G92 Toxic encephalopathy (principal); K72.00 Acute and subacute hepatic failure without coma; G72.81 Critical illness myopathy; E87.2 Acidosis; M62.82 Rhabdomyolysis; N17.9 Acute kidney failure, unspecified; G62.9 Polyneuropathy, unspecified; F01.50 Vascular dementia, unspecified severity, without behavioral disturbance, psychotic disturbance, mood disturbance, and anxiety; F32.9 Major depressive disorder, single episode, unspecified; G56.22 Lesion of ulnar nerve, left upper limb; I12.9 Hypertensive chronic kidney disease with stage 1 through stage 4 chronic kidney disease, or unspecified chronic kidney disease; N18.3 Chronic kidney disease, stage 3 (moderate); R19.7 Diarrhea, unspecified; R53.81 Other malaise; D50.9 Iron deficiency anemia, unspecified; Z60.2 Problems related to living alone; Z72.89 Other problems related to lifestyle; Z90.710 Acquired absence of both cervix and uterus; Z88.0 Allergy status to penicillin; Z28.21 Immunization not carried out because of patient refusal
CPT/HCPCS: 10112

== ENCOUNTER 2017-06-19 13:13 | Inpatient (IN) | payer OTHER ==
[~2017-06-19] VITALS: Ht 152.4 cm; Wt 59.0 kg
--- NOTE | ~2017-06-19 | S ---
[facility] [place] [address] SURGICAL PATH RPT PROCEDURE Name: LAURA SMITH Room #: 419-P ADM IN M.R.#: [id number] Admission: 06/19/17 Date of : 48 Discharge: Report #: [id number] Path Case #: [id number] PATHOLOGY REPORT COLLECTION DATE: 06/20/2017 RECEIVED DATE: 06/20/2017 SUBMITTING PHYS: Dr. Suze Campos OTHER PHYS: Dr. Loco Sullivan SPECIMEN(S) RECEIVED: A.Cecum * * * * * * * * * * * * FINAL DIAGNOSIS: "Cecum", biopsy: - Colonic mucosa with mild reactive changes and prominent pigmented lamina propria macrophages. (See comment). COMMENT: The colonic mucosa has mild reactive changes. There is no evidence for active, lymphocytic or collagenous colitis and no changes that are suggestive of ischemia. 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 Clinical and endoscopic correlation is required. No dysplasia is seen. (CLW:catrachito; 06/21/2017) PATHOLOGIST: Mary Arreola M.D. REPORT ELECTRONICALLY SIGNED BY: Mary Arreola M.D. DATE/TIME: 06/21/2017 15:50 * * * * * * * * * * * * GROSS PATHOLOGY: Received in formalin labeled "Laura Sight, BX cecum," are 2 segments of lopez soft tissue measuring 0.4 x 0.2 x 0.2 cm in aggregate dimensions and measuring 0.2 cm each in maximum dimension. The specimen is submitted entirely in cassette A1. (TSD; 06/20/2017) CLINICAL HISTORY: Pre-OP DX: Possible ischemia Post-OP DX: Normal colonoscopy INITIAL CPT CODE(S): A; 95318 Professional services performed by [facility] at [facility] [address] [place] [address] SURGICAL PATH RPT PROCEDURE Name: SIGHT,LAURA Room #: 419-P ADM IN M.R.#: [id number] Admission: 06/19/17 Date of : 48 Discharge: Report #: [id number] Path Case #: [id number], [place] [address] Technical services performed by [facility] at [address] [place] [address], [facility] [address] [address]. [facility] [address] [place] [id number] PHONE: [phone] DIRECTOR: Jarrett Adame M.D. * * * END OF REPORT * * *
--- NOTE | ~2017-06-19 | P ---
[facility] [place] [address] PROCEDURE REPORT Name: ALEXANDRIA SMITH Room #: 419-P [facility] IN M.R.#: [id number] Admission: 06/19/17 Attend Phys: Loco Sullivan MD Discharge: Date of : 48 Report #: [id number] THIS REPORT FOR: //name// CC: Loco Sullivan MD DATE OF SERVICE: 06/20/2017 PROCEDURE: Colonoscopy with biopsy. Patient of Dr. Loco Sullivan. INDICATION FOR PROCEDURE: Evaluate a severe metabolic acidosis that this patient had at the time of admission and iron deficiency anemia. Informed consent for this procedure was obtained prior to the administration of any medication. The risks of the procedure which include bleeding, perforation, infection, complications of sedation and the possibility I could miss something have been explained to the patient and she has indicated her consent by signing. DESCRIPTION OF PROCEDURE: Propofol was slowly titrated before and during this procedure for the patient's comfort by the Anesthesia service. A digital rectal exam was performed and no abnormalities were palpated. Then, the FunPuntosinon colonoscope was introduced through the anal sphincter and advanced under direct visualization to the terminal ileum. Findings were noted on withdrawal of the scope. The terminal ileal mucosa appeared normal. In the cecum, the mucosa appeared to be affected by melanosis coli. Biopsies were obtained x 2 for histopathology. Ascending colon: Normal mucosa. Hepatic flexure: Normal mucosa. Transverse colon: Normal mucosa. Splenic flexure: Normal mucosa. Descending colon: Normal mucosa. Sigmoid colon: Normal mucosa. Rectum: Normal mucosa. Retroflex view did not reveal any further abnormalities. The scope was withdrawn. The patient went to the recovery area in stable condition. She tolerated the procedure well. 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 RECOMMENDATIONS: To await the biopsy results. Thank you very much once again for allowing me to participate in her care, Dr. Sullivan. <ELECTRONICALLY SIGNED> By: Suze Campos DO 06/21/17 1131 [id number] Suze Campos DO /nt
[2017-06-19 19:42] VITALS: BP 147/68
[2017-06-20 05:16] VITALS: BP 123/64
[2017-06-20 08:57] VITALS: BP 136/71
[2017-06-20 17:02] VITALS: BP 122/53
[2017-06-20 20:29] VITALS: BP 139/71
[2017-06-21 04:00] VITALS: BP 118/50
[2017-06-21 04:34] LABS: ALBUMIN 2.6 g/dL (3.4-5.0); CALCIUM 8.3 mg/dL (8.5-10.1); CREATININE 1.3 mg/dL (0.6-1.0); PHOSPHORUS 3.7 mg/dL (2.5-4.9)
[2017-06-21 07:25] VITALS: BP 126/81
[2017-06-21 16:11] VITALS: BP 155/64
== END 2017-06-21 17:33 | DRG 682 ==
LOC: TBA 13:13 → 4E 16:39
PROVIDERS: Internal Medicine Nephrology
PROC: 0DBH8ZX Excision of Cecum, Via Natural or Artificial Opening Endoscopic, Diagnostic (ICD-10-PCS; principal; 2017-06-20)
DX: N17.9 Acute kidney failure, unspecified (principal); E43 Unspecified severe protein-calorie malnutrition; R19.7 Diarrhea, unspecified; F03.90 Unspecified dementia, unspecified severity, without behavioral disturbance, psychotic disturbance, mood disturbance, and anxiety; D50.9 Iron deficiency anemia, unspecified; N18.9 Chronic kidney disease, unspecified; I12.9 Hypertensive chronic kidney disease with stage 1 through stage 4 chronic kidney disease, or unspecified chronic kidney disease; Z88.0 Allergy status to penicillin; Z79.899 Other long term (current) drug therapy; Z90.710 Acquired absence of both cervix and uterus; Z28.21 Immunization not carried out because of patient refusal
CPT/HCPCS: 10783; 62110; 62900; 70005

== ENCOUNTER 2017-06-21 10:25 | Inpatient (IN) | payer OTHER ==
--- NOTE | ~2017-06-21 | HC ---
[facility] [place] [address] CONSULTATION Name: ALEXANDRIA SMITH Room #: 514-P [facility] IN M.R.#: [id number] Admission: 06/21/17 Attend Phys: Gerald Brown MD Discharge: 06/27/17 Date of : 48 Report #: [id number] THIS REPORT FOR: //name// CC: Gerald Sullivan DATE OF SERVICE: 06/24/2017 ATTENDING PHYSICIAN: Gerald Brown MD. CHIP UNLOADER: Loco Alonso, PhD. CLINICAL PRESENTATION: The patient is a 66-year-old female admitted back to the rehabilitation unit at [facility] following an interrupted stay. She was initially admitted for a comprehensive rehabilitation program on 06/14/2017 with a critical illness myopathy. She also presented with a multifactorial encephalopathy that was attributed to severe metabolic acidosis, shock liver and rhabdomyolysis. Her diagnosis on readmission to rehab includes critical illness myopathy, improving multifactorial encephalopathy, severe metabolic acidosis, shock liver, normal colonoscopy with melanosis coli, left upper extremity weakness thought to be consistent with compressive neuropathy involving the left ulnar nerve, aspiration, hypertension and acute renal insufficiency. A complete description of her medical condition and history along with medications can be found in her medical record. Neuropsychological consultation was requested to provide assistance in the assessment of cognitive and emotional status and to provide recommendations and services. Prior to this most recent medical event, she was living independently in her own home. The patient has 3 children and 3 siblings. 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 Her sisters are very supportive and available as needed. The patient does have a remote history of alcohol, cannabis, and cocaine abuse. A prior history of alcohol use is reported, but has been discontinued within the last several months. TECHNIQUES UTILIZED: Clinical interview, review of medical records, staff consultation and behavioral observation, mini mental status exam 2 standard version, clock drawing and category fluency assessment. EXAMINATION FINDINGS: The patient was alert and cooperative with the assessment. There is no evidence of aphasia. Her thoughts are logical and goal oriented. There is no evidence of thought disorder. She does not report suicidal or homicidal ideation. She does not report difficulty with sleep, appetite, anxiety/depression or cognition. [facility] [address] [place] [address] CONSULTATION Name: ALEXANDRIA SMITH Room #: 514-P [facility] IN M.R.#: [id number] Admission: 06/21/17 Attend Phys: Gerald Brown MD Discharge: 06/27/17 Date of : 48 Report #: [id number] Her performance on the MMSE 2 brief version is within normal limits with a raw score of 14 and T score of 40, which is at the 16th percentile. Performance on the MMSE 2 standard version was a raw score of 26 of 30, which is a T score of 41 and percentile rank of 18. Overall, performance on the MMSE 2 standard version is improved in comparison with her level of functioning on the previous administration. The patient was able to draw a clock and set the hands at a designated time. Category fluency was at the 8th percentile with a T score of 40, which is within normal limits at the 16th percentile. Her performance was higher than in the previous evaluation. Letter fluency was a raw score of 13 and a T score of 28, which suggests moderate deficits. Overall, verbal fluency was a raw score of 51, T score of 31, which is in the mild to moderate range of impairment. The patient is presenting with an improvement in neurocognitive functioning in comparison to previous testing. Deficits are likely to be primarily within executive functioning. Her performance on a brief abstract reasoning test was 4/8 suggesting neurocognitive deficits. DIAGNOSTIC IMPRESSION: Neurocognitive disorder, with decreased insight - extent to be determined, likely in the mild to moderate range. Alcohol use disorder - by history, in remission Unspecified depressive disorder. RECOMMENDATIONS: The patient would benefit from a more thorough neuropsychological assessment following discharge to clarify cognitive deficits. Assistance in the management of medication is needed. Safety issues concern driving. She indicates that her sister is likely to be able to stay with her to assist overall level of functioning upon her discharge. Assistance in the management of medication, finances and nutrition are suggested. The patient may benefit from psychological counseling to assist in adjustment. Thank you very much for allowing me to provide the consultation on this patient. <ELECTRONICALLY SIGNED> By: Loco Alonso, PhD 07/02/17 [phone] Loco Aolnso, PhD /nt
--- NOTE | ~2017-06-21 | H ---
[facility] [place] [address] HISTORY AND PHYSICAL Name: ALEXANDRIA SMITH Room #: 514-P ADM IN M.R.#: [id number] Admission: 06/21/17 Attend Phys: Gerald Brown MD Discharge: Date of : 48 Report #: [id number] THIS REPORT FOR: //name// CC: Gerald Sullivan DATE OF SERVICE: 06/21/2017 HISTORY AND PHYSICAL/INTERRUPTED STAY NOTE HISTORY OF PRESENT ILLNESS: The patient is seen back for her interrupted stay note. The patient has been on the acute inpatient rehabilitation [facility] being admitted to 06/14/2017 with critical illness myopathy, improving multifactorial encephalopathy thought to be toxic metabolic, severe metabolic acidosis, shock liver, and rhabdomyolysis. 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 She had acute renal insufficiency, aspiration and hypertension. She was involved in the inpatient rehabilitation program. She was progressing with transfers, mod assist. Gait mod assist 250 feet with a front-wheeled walker. She did have [id number] comprehensive deficits. She had had prior intractable diarrhea, which had resolved and she was felt to be stable for a colonoscopy as per primary care. Gastroenterology was contacted. The patient was transferred off the acute inpatient rehabilitation [facility] for an interrupted stay. She was followed by Gastroenterology. She underwent colonoscopy with biopsy on 06/20/2017, which was a normal colonoscopic exam to the terminal ileum except for some melanosis coli in the cecum. The patient was felt to be ready for readmission for acute in-hospital inpatient rehabilitation. PAST MEDICAL HISTORY: Please see the full H and P. FAMILY HISTORY: Please see the full H and P. ALLERGIES: Please see the full H and P. MEDICATIONS: Please see the current medication listing. PHYSICAL EXAMINATION: GENERAL: She is in no distress. She was drowsy and seen earlier. VITAL SIGNS: Her last recorded temperature 97.9, pulse 84, respirations 18, blood pressure 152/75. CHEST: Sounded clear to auscultation. CARDIOVASCULAR: Regular rate and rhythm. ABDOMEN: Bowel sounds positive, nontender. GENITOURINARY AND RECTAL: Deferred. EXTREMITIES: Functional range of motion of the upper extremities. There is some weakness of the left hand ulnar intrinsics. Strength is probably a grade [facility] [email or web address] [place] [address] HISTORY AND PHYSICAL Name: ALEXANDRIA SMITH Room #: 514-P [facility] IN M.R.#: [id number] Admission: 06/21/17 Attend Phys: Gerald Brown MD Discharge: Date of : 48 Report #: [id number] 4-/5 both upper and lower extremities. No distal lower extremity edema. Functionally, she has been min assist with basic bed to chair transfers with some contact assistance with a front-wheeled walker prior to coming back to the rehab [facility]. ASSESSMENT: 1. Critical illness myopathy. 2. Improving multifactorial encephalopathy thought to be toxic metabolic. 3. Severe metabolic acidosis. 4. Shock liver. 5. Normal colonoscopy with the melanosis coli as noted. 6. Left upper extremity weakness thought to be consistent with a compressive neuropathy involving the left ulnar nerve. 7. Aspiration. 8. Hypertension. 9. Acute renal insufficiency. PLAN: The patient is to continue with the acute in-hospital inpatient rehabilitation program. We are working on improving her strength functional mobility, ADLs, endurance, and cognition. The goal is to try to improve her independence, so she can hopefully return back to her prior living situation where she lives alone in a house. The interdisciplinary team will be involved working with her as well as the multiple [employer] consultant physicians. Prognosis is reasonably good with remaining length of stay probably through the mid end of next week. <ELECTRONICALLY SIGNED> By: Gerald Brown MD 06/22/17 1408 [id number] Gerald Brown MD /[facility]
[2017-06-21 20:55] VITALS: BP 125/75; BP 152/75
[2017-06-22 03:17] LABS: HEMATOCRIT 26.9 % (37.0-47.0); HEMOGLOBIN 8.8 gm/dL (12.0-15.0); MCH 31.5 pg (26.0-34.0); MCHC 32.9 g/dL (28.0-37.0); MCV 95.8 fL (80.0-100.0); RBC 2.8 mil/uL (4.20-5.00); RDW 17.7 % (10.5-14.5)
[2017-06-22 03:25] LABS: CALCIUM 7.9 mg/dL (8.5-10.1); CREATININE 1.4 mg/dL (0.6-1.0); POTASSIUM 3.4 mmol/L (3.5-5.1)
[2017-06-22 10:08] VITALS: BP 124/51
[2017-06-22 19:49] VITALS: BP 158/73
[2017-06-23 08:45] VITALS: BP 136/61
[2017-06-23 19:52] VITALS: BP 129/57
[2017-06-24 03:39] LABS: ALBUMIN 2.5 g/dL (3.4-5.0); CALCIUM 8.7 mg/dL (8.5-10.1); CREATININE 1.4 mg/dL (0.6-1.0); PHOSPHORUS 4.1 mg/dL (2.5-4.9); POTASSIUM 4.1 mmol/L (3.5-5.1)
[2017-06-24 08:00] VITALS: BP 97/47
[2017-06-24 21:16] VITALS: BP 103/56
[2017-06-25 08:00] VITALS: BP 118/65
[2017-06-25 19:23] VITALS: BP 140/55
[2017-06-26 08:15] VITALS: BP 109/61
[2017-06-26 19:12] VITALS: BP 108/56
[2017-06-27 06:36] LABS: ALBUMIN 2.8 g/dL (3.4-5.0); CALCIUM 9.5 mg/dL (8.5-10.1); CREATININE 1.6 mg/dL (0.6-1.0); PHOSPHORUS 5.5 mg/dL (2.5-4.9); POTASSIUM 4.5 mmol/L (3.5-5.1)
[2017-06-27 08:30] VITALS: BP 113/67
[2017-06-27 10:10] VITALS: BP 113/67
[2017-06-27 10:16] VITALS: BP 113/67
[2017-06-27 11:59] VITALS: BP 113/67
== END 2017-06-27 14:30 | disposition home health service (06) | DRG 91 ==
LOC: ENTRNSPT 06-27 13:42 → EDTRNSPTSTS 06-27 13:45
PROVIDERS: Internal Medicine Nephrology; Physical Medicine & Rehabilitation
DX: G72.81 Critical illness myopathy (principal); K72.00 Acute and subacute hepatic failure without coma; E87.2 Acidosis; M62.82 Rhabdomyolysis; F32.9 Major depressive disorder, single episode, unspecified; R41.9 Unspecified symptoms and signs involving cognitive functions and awareness; N18.3 Chronic kidney disease, stage 3 (moderate); I12.9 Hypertensive chronic kidney disease with stage 1 through stage 4 chronic kidney disease, or unspecified chronic kidney disease; A08.8 Other specified intestinal infections; F03.90 Unspecified dementia, unspecified severity, without behavioral disturbance, psychotic disturbance, mood disturbance, and anxiety; R53.81 Other malaise; D50.9 Iron deficiency anemia, unspecified; N28.9 Disorder of kidney and ureter, unspecified; Z72.89 Other problems related to lifestyle
CPT/HCPCS: 10112

== ENCOUNTER → 2017-11-23 | Outpatient (CLI) | payer OTHER | LOC: MRI 09:49 | DX: M25.562 Pain in left knee (principal); M79.89 Other specified soft tissue disorders; I10 Essential (primary) hypertension; E78.5 Hyperlipidemia, unspecified; Z88.0 Allergy status to penicillin ==

== ENCOUNTER 2018-02-18 10:56 | Emergency (ER) | payer OTHER ==
[~2018-02-18] VITALS: Ht 152.4 cm; Wt 52.2 kg
[2018-02-18] MEDS ORDERED: TRIAMTERENE/HCT1 CA1 PO (11:46)
[2018-02-18] MEDS ORDERED: WELLBUTRIN SR150 MG PO (11:46)
[2018-02-18] MEDS ORDERED: ACETAMINOPHEN-1 EAC1 PO (11:51)
[2018-02-18] MEDS ORDERED: NORCO 5-325 TA1 EACH PO (11:55)
== END 2018-02-18 12:07 | disposition home or self-care (01) ==
LOC: ER 10:56
DX: S70.02XA Contusion of left hip, initial encounter (principal); W17.89XA Other fall from one level to another, initial encounter; Y93.89 Activity, other specified; Y92.89 Other specified places as the place of occurrence of the external cause; Y99.8 Other external cause status; Z88.0 Allergy status to penicillin

== ENCOUNTER → 2018-09-09 | Outpatient (CLI) | payer OTHER ==
[~2018-09-09] MED LIST changes: +ACETAMINOPHEN-1 EAC1 PO; +NORCO 5-325 TA1 EACH PO; +WELLBUTRIN SR150 MG PO
== END ==
LOC: CAT 14:12
DX: S09.90XA Unspecified injury of head, initial encounter (principal); R51 Headache; Z88.1 Allergy status to other antibiotic agents; Z88.2 Allergy status to sulfonamides; Z88.0 Allergy status to penicillin; W19.XXXA Unspecified fall, initial encounter; Y93.89 Activity, other specified; Y92.89 Other specified places as the place of occurrence of the external cause; Y99.8 Other external cause status

== ENCOUNTER → 2019-03-26 | Outpatient (CLI) | payer OTHER | LOC: NUC 12:06 | DX: E78.5 Hyperlipidemia, unspecified (principal); I10 Essential (primary) hypertension; Z88.8 Allergy status to other drugs, medicaments and biological substances; Z88.2 Allergy status to sulfonamides; Z88.0 Allergy status to penicillin; Z87.891 Personal history of nicotine dependence ==

== ENCOUNTER → 2019-04-14 | Outpatient (CLI) | payer OTHER ==
--- NOTE | 2019-04-14 12:03 | 2DMMODE ---
[facility] [email or web address] [place] [address] 2 D/M-MODE ECHOCARDIOGRAM Name: ALEXANDRIA SMITH Room #: REG COUNT INCLUDES THE [facility]#: [id number] Admission: 04/14/19 Attend Phys: Robby Reilly MD Discharge: Date of : 48 Report #: [id number] THIS REPORT FOR: //name// APPROVED REPORT Study performed: 04/14/2019 10:56:06 EXAM: Comprehensive 2D, Doppler, and color-flow Echocardiogram Patient Location: Out-Patient Room #: Echo lab 1 Status: routine BSA: 1.50 HR: 84 bpm BP: 142/86 mmHg Rhythm: NSR Other Information Study Quality: Adequate Indications Chest Pain 2D Dimensions RVDd: 29.75 mm IVSd: 8.29 (7-11mm) LVOT Diam: 18.29 (18-24mm) LVDd: 35.57 mm PWd: 8.26 (7-11mm) Ascending Ao: 28.73 (22-36mm) LVDs: 23.68 (25-40mm) Aortic Root: 29.18 mm IVC: 10.00 mm Volumes Left Atrial Volume (Systole) Single Plane 4CH: 32.23 mL Single Plane 2CH: 26.83 mL LA ESV Index: 22.00 mL/m2 Aortic Valve AoV Peak Prasanna.: 1.34 m/s AO Peak Gr.: 7.21 mmHg LVOT Max P.42 mmHg LVOT Max V: 1.16 m/s INGRID Vmax: 2.28 cm2 Mitral Valve E/A Ratio: 0.7 MV Decel. Time: 318.77 ms MV E Max Prasanna.: 0.76 m/s [facility] [address] [place] [address] 2 D/M-MODE ECHOCARDIOGRAM Name: ALEXANDRIA SMITH Room #: [facility]#: [id number] Admission: 04/14/19 Attend Phys: Robby Reilly MD Discharge: Date of : 48 Report #: [id number] A Prasanna.: 1.13 m/s MV PHT: 92.44 ms IVRT: 156.86 ms Pulmonary Valve PV Peak Prasanna.: 1.03 m/s PV Peak Gr.: 4.25 mmHg Pulmonary Vein P Vein S: 0.64 m/s P Vein A: 0.21 m/s P Vein D: 0.24 m/s P Vein A Dur.: 120.0 msec P Vein S/D Ratio: 2.67 Tricuspid Valve TR Peak Prasanna.: 2.48 m/s TR Peak Gr.: 24.57 mmHg PA Pressure: 30.00 mmHg Left Ventricle The left ventricle is normal size. There is normal LV segmental wall motion. There is normal left ventricular wall thickness. The left ventricular systolic function is normal. The left ventricular ejection fraction is within the normal range. LVEF is 60-65%. Grade I - abnormal relaxation pattern. Right Ventricle The right ventricle is normal size. The right ventricular systolic function is normal. Atria The left atrium size is normal. The right atrium size is normal. Aortic Valve The aortic valve is normal in structure. The Aortic valve is sclerotic. Trace aortic regurgitation. There is no aortic valvular stenosis. Mitral Valve The mitral valve is normal in structure. Trace to mild mitral regurgitation. No evidence of mitral valve stenosis. Tricuspid Valve The tricuspid valve is normal in structure. There is trace tricuspid regurgitation. Estimated PAP 30 mmHg. There is no pulmonary hypertension. [facility] [address] [place] [address] 2 D/M-MODE ECHOCARDIOGRAM [facility]: [facility] Room #: REG COUNT INCLUDES THE [facility]#: [id number] Admission: 04/14/19 Attend Phys: Robby Reilly MD Discharge: Date of : 48 Report #: [id number] Pulmonic Valve The pulmonary valve is normal in structure. Trace pulmonic regurgitation. Great Vessels The aortic root is normal in size. IVC is normal in size and collapses >50% with inspiration. Pericardium There is no pericardial effusion. <Conclusion> The left ventricle is normal size. There is normal left ventricular wall thickness. The left ventricular systolic function is normal. Grade I - abnormal relaxation pattern. The right ventricle is normal size. The left atrium size is normal. Trace aortic regurgitation. Trace to mild mitral regurgitation. There is trace tricuspid regurgitation. Estimated PAP 30 mmHg. <ELECTRONICALLY SIGNED> By: Robby Reilly MD 04/14/191202 02 02 Robby Reilly MD /INF
== END ==
LOC: NUC 10:40
DX: I08.0 Rheumatic disorders of both mitral and aortic valves (principal); R07.89 Other chest pain

== ENCOUNTER 2019-05-07 11:43 | Inpatient (IN) | payer OTHER ==
[~2019-05-07] VITALS: Ht 152.4 cm; Wt 53.1 kg
--- NOTE | ~2019-05-07 | HC ---
[facility] [place] [address] CONSULTATION Name: ALEXANDRIA SMITH Room #: 439-P [facility] IN M.R.#: [id number] Admission: 05/07/19 Attend Phys: Loco Sullivan MD Discharge: Date of : 48 Report #: [id number] THIS REPORT FOR: //name// CC: Loco Sullivan DATE OF SERVICE: 05/08/2019 REASON FOR CONSULTATION: Right ankle and metatarsal fractures. HISTORY OF PRESENT ILLNESS: The patient is a 68-year-old female who fell in her bathroom last night. She slipped on her bathroom. This occurred 2 days ago. She has been able to put a little bit of weight on the ankle, but has been using a walker to ambulate. REVIEW OF SYSTEMS: MUSCULOSKELETAL: See HPI. No other complaints. NEUROLOGIC: Denies numbness or tingling in the extremities. PAST MEDICAL HISTORY: Significant for alcohol and drug abuse with a history of alcohol and cocaine specifically. It was reported that she smelled of alcohol during transport. Acute kidney failure, history of left ankle fracture fixation. ALLERGIES: PENICILLIN. SOCIAL HISTORY: She denies drinking alcohol or using any drugs at this point. Denies smoking cigarettes. Uses no ambulatory devices normally. Lives by herself. SURGICAL HISTORY: Unknown. MEDICATIONS: Lorazepam, pantoprazole, bupropion, hydrochlorothiazide/triamterene, escitalopram, losartan. LABORATORY STUDIES: Done on the date of admission show white blood cell count 8.5, hemoglobin 14.2, hematocrit 42.3, platelet count 416. Her potassium was critically low at 2.4; however, is now in the normal range at 3.9. Sodium level 134, creatinine is elevated at 2.4. Serum alcohol was less than 10. Other drug screen has not been received from the lab it appears. PHYSICAL EXAMINATION: GENERAL: The patient is alert and oriented. She interacts appropriately; however, she denied any history of alcohol abuse; however, when I discussed that I was confused that something was noted in the chart with a history of alcohol abuse, she reported that she did in fact have a history of alcohol abuse, but she was not drinking recently. [facility] [address] [place] [address] CONSULTATION Name: ALEXANDRIA SMITH Room #: 439-P ADM IN M.R.#: [id number] Admission: 05/07/19 Attend Phys: Loco Sullivan MD Discharge: Date of : 48 Report #: [id number] VITAL SIGNS: Most recent vital signs show temperature of 36.6, heart rate 78, respiratory rate 18, blood pressure 135/66, pulse oximetry is 100% on room air. EXTREMITIES: Examination of her bilateral upper extremities, sensory and motor exam is grossly intact. Skin is clean, dry and intact. She grossly moves all of her upper extremity joints without pain. Right lower extremity exam, she has diffuse edema at the ankle and mid foot. Gross sensation and motor is intact. Skin is intact. The splint was partially removed. There is no other tenderness. There was diffuse tenderness to the ankle and foot. No other tenderness in the right lower extremity. Left lower extremity moved well without pain. Motor and sensory is grossly intact. Skin is intact. RADIOGRAPHS: AP, lateral and mortise of the right ankle show minimally displaced lateral malleolus fracture with an intact mortise. AP, lateral and oblique of the right foot show nondisplaced 2nd and 3rd and possibly 4th metatarsal base fractures. IMPRESSION AND PLAN: Right lateral malleolus fracture with minimal displacement and metatarsal base fractures with no displacement. I have written for a Cam walker. She may be weightbearing as tolerated and will follow up with either myself or Dr. Houser. I also discussed this patient with Dr. Gaurav Houser, will have therapy work with her tomorrow. She may be weightbearing as tolerated in the Cam walker. I ordered the Cam walker to be stat in hopes that it would be placed either today or tomorrow morning. Thank you very much for allowing me to participate in the care of this patient. By: 1412 [id number] Stephanie Patel MD /kamar
[2019-05-07 11:45] VITALS: BP 153/82
[2019-05-07 14:20] LABS: HEMATOCRIT 42.3 % (37.0-47.0); HEMOGLOBIN 14.2 gm/dL (12.0-15.0); MCH 31.7 pg (26.0-34.0); MCHC 33.5 g/dL (28.0-37.0); MCV 94.4 fL (80.0-100.0); RBC 4.48 mil/uL (4.20-5.00); WBC 8.5 thou/uL (4.0-11.0)
[2019-05-07 14:23] VITALS: BP 146/84
[2019-05-07 14:27] LABS: CALCIUM 10.4 mg/dL (8.5-10.1); CREATININE 2.4 mg/dL (0.6-1.0)
[2019-05-07 14:35] LABS: POTASSIUM 2.4 mmol/L (3.5-5.1)
[2019-05-07 15:01] LABS: MAGNESIUM 1.8 mg/dL (1.8-2.4)
[2019-05-07 16:23] VITALS: BP 150/91
--- NOTE | 2019-05-07 17:27 | NUR ---
NEW PATIENT OF DR BOWDEN ADMITTED FOR FX OF RIGHT FOOT AND ANKLE. ALERT X4, PAIN MANAGED WITH MEDICATIONS, ASSIST TRANSFERS TO COMMODE. NON WTE BEARING ON RIGHT FOOT. SPLINT SOFT CAST WITH MARIEL WRAP ON RIGHT FOOT ANKLE. LAST BM TODAY. PT STATES SHE IS CONTINENT. FAMILY SONS AND PATIENT INDICATED PT WILL NEED SURGERY. NO ORTHO CONSULT AT THIS TIME. WILL KEEP NPO AFTER MIDNIGHT. ADMISSION HISTORY AND ASSESMENT COMPLETED. HOME MEDS REVIEWED. CALL LIGHT IN REACH. FALL PRECATIONS IN PLACE.
[2019-05-07 19:55] VITALS: BP 129/89
[2019-05-08 04:45] VITALS: BP 159/84; BP 179/80
--- NOTE | 2019-05-08 06:42 | NUR ---
PT FELL IN THE BR. ARABIC PROFESSOR WITH THE PT ASSITING THE PT TO THE BR. WITNESSED NON-INJURY FALL. PT DENIES HITTING HER HEAD. NO INJURIES, DENIES HAVING ANY PAIN. PT A&O X4.
--- NOTE | 2019-05-08 06:48 | NUR ---
DR BOWDEN NOTIFIED OF THE PT'S FALL. SHAANAN WILL BE HERE TO SEE THE PATIENT IN AN HOUR. VSS. 143/93, 77, 97%, 97.7, 18R
--- NOTE | 2019-05-08 07:16 | NUR ---
PT SON NOTIFIED ABOUT THE PT'S WITNESSED NONINJURY FALL. SON'S NAME ENRIQUETA [phone]
[2019-05-08 08:00] VITALS: BP 135/66
--- NOTE | 2019-05-08 13:59 | NUR ---
Chart reviewed and case discussed with the care team. Tie Hacker visited with the pt at bedside. She is a&x4. She lives indep at home and fell with resulting fx. Ortho consult and possible surgery pending. Pt is anticipating dc to home with hh or outpt therapy and states she has been through this a couple years ago. She was NWB for a while and used a w/c for mobility. She was here in 2018 with a fracture and went to rehab on [facility]. She lives in a ranch style home with no steps. She reports her son Fernando is her emergency contact. The pt has hx of ethol and substance abuse. Her children report concerns about current use. Alcohol level >10 on admit. The pt reports she has a friend name Evelin who can help her at dc also. Possible rehab options reviewed. She might be open to 5N eval but declined to discuss snf. Will await ortho recommendations and therapy evals to assist with dc planning efforts.
[2019-05-08 16:00] VITALS: BP 116/57
--- NOTE | 2019-05-08 16:59 | NUR ---
PATIENT ORIENTED X4, VSS, PAIN MANAGED WITH MEDICATIONS, ORHTO CONSULT TODAY, WTE BEARING TOLERATED WITH WALK CAM BOOT, GAIT BELT AND WALKER. UP TO COMMODE OR TOILET. EVALUTATED BY [facility] DC TO REHAB TOMORROW. FALL PRECAUTIONS IN PLACE. CALLS FOR ASSSITANCE.
[2019-05-08 19:24] VITALS: BP 124/65
--- NOTE | 2019-05-09 03:18 | NUR ---
PT TO UNIT AROUDN SHIFT CHANGE. REASESSMENT COMPLETED. PT COMPLAINS OF PAIN IN FOOT, MEDICATION GIVEN. URGENCY WITH URINATION, REQUIRES HER TO WALK VERY QUICKLY AND BECOMES UNSTEADY. MENTIONED WANTING SLEEP MEDICATION, BUT PAIN MEDS AND LORAZEPAM GIVEN AND PT SLEPT GOOD PORTION OF NIGHT. WILL CONTINUE TO FOLLOW POC.
[2019-05-09 04:09] VITALS: BP 145/74
[2019-05-09 07:15] VITALS: BP 166/99
[2019-05-09 09:59] LABS: CALCIUM 8.8 mg/dL (8.5-10.1); CREATININE 1.9 mg/dL (0.6-1.0); POTASSIUM 4.5 mmol/L (3.5-5.1)
[2019-05-09 10:23] VITALS: BP 166/99
--- NOTE | 2019-05-09 10:24 | NUR ---
Following for d/c planning needs. Pt has d/c orders to return home. Pt said she has her boot and is waiting for PT evaluation. Pt does not meet criteria for 5[facility] Rehab. Pt adamantly refuses SNF at this time. Pt was given options, and wants to use [facility] for home health. Asked liaison planner to fax referral and orders to [facility]. Pt said she will contact family and does not want AERODYNAMIC CONSULTANT to call sons.
--- NOTE | 2019-05-09 10:53 | NUR ---
PT CARE ASSUMED AT 0700. A&Ox4 PT IS ADAMENT ABOUT DISCHARGING TO HOME NOT TO REHAB. DR. BOWDEN IS AWARE OF THIS. CHASSIS DRIVER IS WORKING ON THSI CASE WITH PT. LABS WERE REDRAWN WITH POTASSIUM STABLE NOW AT 4.5. DISCHARGE ORDERS ARE IN PLACE. PT IS UP WITH WALKER AND A GATE BELT. PAIN IS WELL CONTROLLED WITH PAIN MEDICATION. PT HAS WALKING BOOT ON AND CAN BARE WEIGHT TOLERATED. PT ON BOARD. IV IS PATENT WITH NO REDNESS OR SWELLING. FLUIDS DISCONTUED AND SALINE LOCKED. BED IS IN LOW POSITION, LOCKED, WITH BED ALARM ON. CALL LIGHT IN REACH.
[2019-05-09 12:00] VITALS: BP 166/99
--- NOTE | 2019-05-09 12:03 | NUR ---
FAXED REFERRAL TO [facility] SPOKE WITH GENTRY IN INTAKE SHE RECEIVED REFERRAL AND CAN ACCEPT AT DC. DP TO FOLLOW.
== END 2019-05-09 13:31 | disposition home health service (06) | DRG 563 ==
LOC: ER 11:43 → 2N 13:53 → EROBS 13:53 → 2N 15:25 → 4S 05-08 18:45
PROVIDERS: Physician Assistant; ADMIT Family Medicine
DX: S82.401A Unspecified fracture of shaft of right fibula, initial encounter for closed fracture (principal); N17.9 Acute kidney failure, unspecified; W01.0XXA Fall on same level from slipping, tripping and stumbling without subsequent striking against object, initial encounter; F19.11 Other psychoactive substance abuse, in remission; R29.6 Repeated falls; F14.11 Cocaine abuse, in remission; E87.6 Hypokalemia; R53.1 Weakness; S92.334A Nondisplaced fracture of third metatarsal bone, right foot, initial encounter for closed fracture; S92.344A Nondisplaced fracture of fourth metatarsal bone, right foot, initial encounter for closed fracture; Z90.710 Acquired absence of both cervix and uterus; Y92.031 Bathroom in apartment as the place of occurrence of the external cause; Y93.89 Activity, other specified; Y99.8 Other external cause status; Z88.0 Allergy status to penicillin; Z79.899 Other long term (current) drug therapy; Z28.21 Immunization not carried out because of patient refusal
CPT/HCPCS: 10081; 10100; 10194; 10195

== ENCOUNTER 2019-08-27 11:37 | Inpatient (IN) | payer OTHER ==
[~2019-08-27] VITALS: Ht 152.4 cm; Wt 53.5 kg
[2019-08-27 11:57] VITALS: BP 146/77
[2019-08-27 12:15] LABS: BASOPHILS 0.5 % (0.0-2.0); EOSINOPHILS 0.5 % (0.0-3.0); HEMOGLOBIN 12.9 gm/dL (12.0-15.0); LYMPHOCYTES 12.8 % (24.0-44.0); MCHC 33.8 g/dL (28.0-37.0); MCV 97.5 fL (80.0-100.0); PLATELET COUNT 350 thou/uL (150-400); POLYS 80.2 % (36.0-66.0); WBC 12.4 thou/uL (4.0-11.0)
[2019-08-27 12:25] LABS: URINE BILIRUBIN NEGATIVE (Negative); URINE BLOOD 1+ (Negative); URINE CLARITY CLEAR; URINE COLOR YELLOW; URINE GLUCOSE-RANDOM* NEGATIVE (Negative); URINE KETONES NEGATIVE (Negative); URINE LEUKOCYTES-REFLEX NEGATIVE (Negative); URINE NITRITE-REFLEX NEGATIVE (Negative); URINE PROTEIN (DIPSTICK) NEGATIVE (Negative); URINE UROBILINOGEN 0.2 E.U./dl (0.2-1.0)
[2019-08-27] MEDS ORDERED: DIURETIC (12:26)
[2019-08-27 12:31] LABS: CALCIUM 9.3 mg/dL (8.5-10.1); CREATININE 2.2 mg/dL (0.6-1.0); TOTAL BILIRUBIN 0.6 mg/dL (<0.1-1.0); TOTAL PROTEIN 7.7 g/dL (6.4-8.2)
[2019-08-27 12:35] LABS: BACTERIA-REFLEX 1-9 Few /HPF (None Seen); CASTS None Seen /LPF (None Seen); CRYSTALS None Seen /LPF (None Seen); SQUAMOUS None Seen /LPF (0-3); URINE RBC 0-2 Rare /HPF (0-2); URINE WBC-REFLEX None Seen /HPF (0-5)
[2019-08-27 13:18] LABS: SALICYLATE 3.6 mg/dL (2.8-20.0)
--- NOTE | 2019-08-27 13:18 | NUR ---
PLEASE CALL NAMAN COCHRAN, WHEN PT HAS ROOM: [phone]
--- NOTE | 2019-08-27 14:02 | EKG ---
[facility] [place] [address] ELECTROCARDIOGRAM REPORT Name: ALEXANDRIA SMITH Room #: REG [facility].R.#: [id number] Admission: 08/27/19 Attend Phys: Discharge: Date of : 48 Report #: [id number] THIS REPORT FOR: cc: Loco Sullivan MD, Neal A. MD Couchonnal, Luis F. MD ~ THIS REPORT FOR: //name// [facility] ED Test Date: 2019-08-27 Test Time: 12:07:28 Pat Name: ALEXANDRIA SMITH Department: Room: Gender: Stave Inspector: [facility] : 1950 Requested By: Avinash Thornton Order Number: [id number] : Ayo Plunkett Measurements Intervals [place] Rate: 94 P: 25 MN: 163 QRS: -44 QRSD: 94 T: 33 QT: 380 QTc: 476 Interpretive Statements Sinus rhythm Inferior infarct, old Anterior infarct, old Compared to ECG 06/25/2016 08:49:28 Myocardial infarct finding now present Intraventricular conduction delay no longer present Electronically Signed On 08-27-2019 14:00:33 CDT by Ayo Plunkett [email or web address] <ELECTRONICALLY SIGNED> By: Ayo Plunkett MD 08/27/19 1400 1207 1207 Ayo Plunkett MD /EPI
[2019-08-27 18:43] VITALS: BP 145/97
--- NOTE | 2019-08-27 18:47 | NUR ---
FIRST ATTEMPT TO CALL REPORT AT 1840.
--- NOTE | 2019-08-27 19:04 | NUR ---
SECOND ATTEMPT TO [facility] REPORT AT 1902
[2019-08-27 20:37] VITALS: BP 151/83
[2019-08-27] MEDS ORDERED: TRAZODONE HCL50 MG PO (21:12)
[2019-08-28 00:02] VITALS: BP 148/76
--- NOTE | 2019-08-28 02:54 | NUR ---
ADMITTED FROM ER UNDER 'S CARE. SPOKE TO MD ABOUT PT'S MEDS AND OTHER ORDERS. VSS. AXOX4. PT ATE W/O DIFFICULT. SUPERVISED FOR FIRST CUP OF WATER FOOD FOR POSSIBLE ASPIRATION D/T AMS. PT DID NOT SHOW S/S AMS SO FAR. INIIAL WOUND CARE RENDERED AT BEDSIDE AND PICTURES WERE TAKEN. NO S/S ACUTE DISTRESS NOTED OR REPORTED AT THIS TIME. WILL CONT TO MONITOR FOR ANY CHANGES IN CONDITION.
[2019-08-28 03:35] VITALS: BP 146/75
[2019-08-28 07:24] VITALS: BP 135/71
--- NOTE | 2019-08-28 10:31 | NUR ---
WOUND CONSULT; THIS PATIENT HAS HAD A FALL AND POSSIBLY WILL BE DISCHARGED TODAY. THE RIGHT FORHEAD HAS SOME MINOR ABRASIONS/BRUSING. THE LEFT ELBOW HAS A SKIN TEAR. THE RIGHT KNEE HAS A SKIN TEAR WELL THAT HAS SOME NON VIABLE TISSUE PRESENT. NONE OF THESE WOUNDS SHOW S/S OF INFECTION. A BARRIER WIPE WAS APPLIED TO THE FOREHEAD WOUND. 2 DRESSINGS WERE PROVIDED TO THE PATIENT. RECOMMENDATION; 1- FORHEAD DIANA 2-A BORDER FOAM TO THE LEFT ELBOW SECURED WITH A TUBIGRIP. 3-THE LEFT KNEE THERAHONEY,BORDER FOAM,LEAVE IN PLACE UNTIL SUNDAY. DISCUSSED WITH ALLEN
[2019-08-28 10:52] VITALS: BP 135/71
--- NOTE | 2019-08-28 11:39 | NUR ---
Assumed pt care at 7am.Pt in bed resting and quiet.Assessment completed.vss. Dr Sullivan here,dc order noted.Pt to complete mri and physical therapy before dc home later this afternoon.Dc summary compile and reviewed with pt.Pain med given for generalized bodyache with relief.Will continue to monitor.
--- NOTE | 2019-08-28 11:43 | NUR ---
ASSESSMENT: CM REVIEWED CHART AND SPOKE WITH ATTENDING. PT WAS ADMITTED FOR AMS/POST FALL. PT HAS HX OF SUBSTANCE AND ALCOHOL ABUSE. CM ATTEMPTED TO CONTACT PATIENT IN HER ROOM VIA PHONE X3 BUT NO ANSWER. CM SPOKE WITH BEDSIDE RN WELL PATIENTS SON ENRIQUETA. PT LIVES AT HOME ALONE. PT HAS A RANCH STYLE HOME WITH NO STEPS. PT AMBULATES INDEPENDENTLY BUT DOES HAVE A WALKER AT HOME THE SON REPORTS. PER SON PT HAS HAD [facility] IN THE PAST. HE STATES HE AND HIS BROTHER HAVE TRIED TO ENCOURAGE HER TO MOVE TO AN ASSISTED LIVING MULTIPLE TIMES BUT SHE CONTINUES TO REFUSE. ATTENDING ALSO SPOKE WITH PATIENT ABOUT SNF AND SHE REFUSES STATING SHE WANTS TO RETURN HOME. PT IS NOT AGREEABLE TO SNF. SON REPORTS SHE HAS NEVER BEEN AGREEABLE TO GO ANYWHERE BUT HOME. HE STATES THEY HAVE GOTTEN HER A LIFE ALERT BUT SHE IS NOT ALWAYS COMPLIANT WITH WEARING IT. HE REPORTS HE AND HIS BROTHER CHECK IN ON HER AT TIMES. HE IS AGREEABLE WITH , SINCE HAD [facility] IN THE PAST PREFERS REFERRAL TO [facility]. CM SENT REFERRAL AND THEY HAVE ACCEPTED PT. DIMAS FLOERNCE WILL LIKELY MEDICAL CERTIFICATION SPECIALIST PATIENT AT DISCHARGE HIS NUMBER IS [phone]. CYRIL SPOKE WITH BEDSIDE RN WHO REPORTS MRI STILL NEEDS TO BE COMPLETED PRIOR TO DISCHARGE. DIMAS FLORENCE WILL NEED TO BE CONTACTED ONCE PT IS READY.
[2019-08-28 12:56] VITALS: BP 135/71
--- NOTE | 2019-08-29 06:44 | NUR ---
ORDERS RECEIVED, PATIENT D/C PRIOR TO OT EVAL COMPLETED.
== END 2019-08-28 15:40 | disposition home health service (06) | DRG 896 ==
LOC: ER 11:37 → EROBS 17:51 → 4S 17:51
PROVIDERS: Emergency Medicine; ADMIT Family Medicine
DX: F10.188 Alcohol abuse with other alcohol-induced disorder (principal); R65.11 Systemic inflammatory response syndrome (SIRS) of non-infectious origin with acute organ dysfunction; N17.9 Acute kidney failure, unspecified; E51.2 Wernicke's encephalopathy; S09.90XA Unspecified injury of head, initial encounter; M48.02 Spinal stenosis, cervical region; Y90.0 Blood alcohol level of less than 20 mg/100 ml; W18.39XA Other fall on same level, initial encounter; Y93.89 Activity, other specified; Y92.89 Other specified places as the place of occurrence of the external cause; Z90.710 Acquired absence of both cervix and uterus; Z88.0 Allergy status to penicillin; Y99.8 Other external cause status; G56.20 Lesion of ulnar nerve, unspecified upper limb
CPT/HCPCS: 10195

== ENCOUNTER → 2019-12-31 | Outpatient (CLI) | payer OTHER ==
[~2019-12-31] MED LIST changes: +DIURETIC; +TRAZODONE HCL50 MG PO
== END ==
LOC: CAT 13:23
PROVIDERS: ATTEND Nurse Practitioner
DX: S09.90XA Unspecified injury of head, initial encounter (principal); I67.2 Cerebral atherosclerosis; F10.10 Alcohol abuse, uncomplicated; X58.XXXA Exposure to other specified factors, initial encounter; Y93.89 Activity, other specified; Y92.89 Other specified places as the place of occurrence of the external cause; Y99.8 Other external cause status

== ENCOUNTER 2020-02-07 13:49 | Inpatient (IN) | payer OTHER ==
[2020-02-07] VITALS (7 sets, daily range): BP systolic 125–187; BP diastolic 78–106
[~2020-02-07] VITALS: Ht 152.4 cm; Wt 48.3 kg
--- NOTE | ~2020-02-07 | EMS ---
[address] [address] EMS Patient Care Report Name: ALEXANDRIA SMITH Room #: PRE ALEKS M.R.#: [id number] Admission: Attend Phys: Discharge: Date of : 48 Report #: [id number] THIS REPORT FOR: //name// Report Transmitted: 02/07/2020 13:28 EMS Care Summary [facility] MED-ACT Incident [id number] @ 02/07/2020 13:01 Incident Location [address] [place] [address] Patient ALEXANDRIA SMITH Female, 69 Years 1950 Patient Address [address] [place] [address] Patient History Substance Abuse,Alzheimer's, Patient Allergies Penicillin allergy, Patient Medications Elavil, Protonix, Lexapro, Triamterene, Lorazepam, Wellbutrin, Chief Complaint "I feel light headed" Disposition Transported No Lights/Adell Dispatch Reason Falls Transported To [facility] Narrative [id number] arrives to find pt sitting in a chair in her bedroom. She appears to be in no acute distress and is in the care of Jaylin MEYER and in the company of her son. The son states his mother has frequent falls and he came to the home to find the patient on the floor near her bed after other family members were [address] [address] EMS Patient Care Report Name: ALEXANDRIA SMITH Room #: PRE ALEKS [facility]#: [id number] Admission: Attend Phys: Discharge: Date of : 48 Report #: [id number] unable to reach her by phone. Son states after he helped her up he felt like she was not acting appropriately, that she was confused and her speech sounded abnormal. Pt is normally GCS15 per son, but now she appears confused to time for EMS and son states she was confused to place prior to EMS arrival. Son says the last time he knew patient to be normal was 2 or 3 days ago. Pt says she is uninjured from the fall, but feels "light headed." She is unable to specify how long she was on the ground but says it "wasn't for long." Pt has no other specific complaints, however, en route to the E she she has not eaten or had anything to drink for 3 days but cant articulate why; EMS noted darkly colored, odorous urine in the toilet an scene and pt is very unstable;le on her feet and needs significant assistance to transfer from the chair to the cot. Initial Vitals @13:39P: 100,R: 24,Pain: 0/10,GCS: 14,SpO2: 99, @PTAP: 92,BP: 120/82, @13:25P: 110,R: 24,BP: 137/83,GCS: 14,Temp: 98.1F,Glucose: 110,SpO2: 93,Revised Trauma: 12, Assessments @13:36MENTAL:Confused,Person Oriented,Event Oriented,Place Oriented,SKIN:Other,Cold,HEENT:Neck/Airway: No Abnormalities,LUNG SOUNDS:ABDOMEN:PELVIS//GI:EXTREMITIES:Left Arm: No Abnormalities,Right Arm: No Abnormalities,Left Leg: No Abnormalities,Right Leg: No Abnormalities,PULSE:NEURO:Slurred Speech,Abnormal Gait, Impression Altered Mental Status Timeline LIBRARY HELPER,BP: 120/82 M,PULSE: 92,RR: R,SPO2: Ox,ETCO2: ,BG: ,PAIN: ,GCS: , 12:59,Call Received 12:59,Psap Call 13:01,Dispatched 13:02,En Route 13:07,On Scene 13:10,At Patient 13:25,BP: 137/83 M,PULSE: 110,RR: 24 R,SPO2: 93 Ox,ETCO2: ,B,PAIN: ,GCS: 14, 13:28,Depart Scene 13:39,BP: / M,PULSE: 100,RR: 24 R,SPO2: 99 Ox,ETCO2: ,BG: ,PAIN: 0,GCS: 14, 13:52,At Destination 13:55,Transfer Patient 14:10,Call Closed Disclaimer [address] [address] EMS [facility] Room #: PRE M.R.#: [id number] Admission: Attend Phys: Discharge: Date of : 48 Report #: [id number] v1.1 Copyright 2020 [employer] This EMS Care Summary contains data elements from the applicable legal record (which may be displayed differently). It is designed to provide pertinent information for the following purposes: continuity of care, clinical quality, and state data reporting. The complete legal record is available to ED staff and administrators of the receiving hospital in [facility]'s Patient Tracker. All data is provided "as is."
--- NOTE | ~2020-02-07 | EEG ---
[facility] [place] [address] ELECTROENCEPHALOGRAM Name: ALEXANDRIA SMITH Room #: 435-P [facility] IN M.R.#: [id number] Admission: 02/07/20 Attend Phys: Loco Sullivan MD Discharge: Date of : 48 Report #: [id number] THIS REPORT FOR: //name// CC: Loco Sullivan DATE OF SERVICE: 02/11/2020 This patient has encephalopathy and EEG was done to look for any possibility of seizure. EEG was done by placing the electrode by standard 10-20 system of electrode placement. Both referential and sequential montages were used for recording. Background activity in this patient's EEG is about 5-6 Hz and 15 microvolt. It is a poorly formed background activity. Photic stimulation was unremarkable. No active epileptiform activity was noticed. IMPRESSION: This is a severely abnormal EEG. Finding is nonspecific, which can occur with encephalopathy, effect of psychotropic medication, dementia, etc. No active epileptiform activity was noticed. I had a call this EEG report to the nurse in ICU when it was done and have talked to her and asked her to see if I can answer any question from the family or if they want to come on the phone and want to talk to me. The nurse talked to the daughter and they said they did not have any question and they did not want to talk to me. I did talk to the nurse to make sure that they are aware of the fact that the recommendation for palliative care is from overall point of view not on this EEG and the limitation of the EEG, especially in light of the patient being on sedation and he indicated the patient's daughter did understand and they have decided the palliative care over the overall picture and her preexisting dementia rather than on the basis of EEG. Thank you very much for this referral and if any questions I can answer for in this patient, I will be happy to answer. By: [id number] Akshat Campuzano MD /nt
--- NOTE | ~2020-02-07 | HC ---
[facility] [address] [place] [address] CONSULTATION Name: ALEXANDRIA SMITH Room #: [address] [place] [address] [place] M.R.#: [id number] Admission: 02/07/20 Attend Phys: Loco Sullivan MD Discharge: Date of : 48 Report #: [id number] THIS REPORT FOR: cc: Loco Sullivan MD, Neal A. MD Khosla, Parveen K. MD ~ CC: Loco Sullivan DATE OF SERVICE: 02/10/2020 HISTORY OF PRESENT ILLNESS: This is a 69-year-old female patient who was evaluated by me for altered mental status. This patient is unable to provide any history at all. She is basically unresponsive when I saw this patient. I reviewed the patient's records and got some history from the record. Then, I called the patient's son and was able to reach the patient's son. He indicates that the patient has been deteriorating as far as memory is concerned for 2-3 years. She does not remember the days, but she still lives alone. They took the keys away from her and she is not allowed to drive, so she orders the food or microwaves the food. However, she insists on living alone at the home and they do not think she should be, because from their description, it looks like she has pretty significant cognitive problem and she has a very poor memory. From the record, it looks like this patient also has trouble with pretty significant amount of alcohol. Some of the notes also indicate cocaine use. Her appetite has been poor and according to the son, she has been in poor condition for some time. Some of the records indicate about cocaine use, she was found unresponsive. REVIEW OF SYSTEMS: Positive for cocaine abuse, hysterectomy, alcohol abuse. Current marijuana use. Presently a temperature of 103. This patient presently is being switched to ICU. That is all the 14-point review of system I can get. PAST MEDICAL HISTORY: Positive for what looks like significant amount of dementia. FAMILY HISTORY: Negative for early dementia. SOCIAL HISTORY: She does drink alcohol and use other drugs. PHYSICAL EXAMINATION: Very limited. She does not wake up for me to carry out any examination. She appeared to be having trouble with breathing. She did not move anything for me. That is all the examination, which was possible in this patient. She has no response of any kind. Her reflexes could not be elicited, tough to tell about meningeal sign because she does not relax for that, but she may have neck stiffness, but difficult to tell. IMPRESSION: I discussed the situation with the son in detail and subsequently I [address] [address] CONSULTATION Name: ALEXANDRIA SMITH Room #: [facility] IN M.R.#: [id number] Admission: 02/07/20 Attend Phys: Loco Sullivan MD Discharge: Date of : 48 Report #: [id number] Sullivan. This patient has underlying dementia. She has numerous metabolic problems including sodium of 159 and GFR of only 25. Her calcium is up at 10.2. She has a pretty significant liver dysfunction, probably related to her alcoholism. I do not believe spine was cleared in this patient when she came to Emergency Room and now she does not look like in a position to go down for a CT. Neurology consultation is requested for dementia and long-term prognosis in that regard. This patient does appear to have a significant dementia in the baseline, whether that is alcohol related, drug related or Alzheimer cannot be determined. The patient with underlying significant amount of dementia does not come back to the baseline; therefore, her prognosis for reasonable medical recovery is poor. Thiamine was ordered, but I do not think she received a dose, so I put it, an IV thiamine. It looks like she did get a vitamin dose. I will suggest clearing her spine since she was found unresponsive, but I am not sure it is possible and I will defer to admitting, but I did order a cross-table lateral because that can be done portable, because I am not sure whether she is fit to go for a C-spine CT because she is pretty unstable at the moment and her breathing was not good and she is being moved to ICU. I did talk to Dr. Sullivan and after talking to them, I did put an ID consult on his behalf because we do need to make sure she does not have FACULTY SUPPORT COORDINATOR infection and until that workup can be done, she may have to be on FACULTY SUPPORT COORDINATOR penetrating medication. If she goes to Radiology Department for some reason, I will suggest doing a CT scan of the C-spine to complete the workup, but final decision I will defer to the admitting. Overall, this patient looks very sick. She has underlying dementia and her prognosis is extremely guarded. Thank you very much for this referral. By: [id number] Akshat Campuzano MD /nt
--- NOTE | 2020-02-07 14:21 | EKG ---
[facility] [place] [address] ELECTROCARDIOGRAM REPORT Name: ALEXANDRIA SMITH Room #: PRE M.R.#: [id number] Admission: Attend Phys: Discharge: Date of : 48 Report #: [id number] THIS REPORT FOR: cc: Loco Sullivan MD, Neal A. MD Santiago, Patrick MD [facility] ~ THIS REPORT FOR: //name// [facility] ED Test Date: 2020-02-07 Test Time: 14:14:34 Pat Name: ALEXANDRIA SMITH Department: Room: Gender: F Dockmaster: : 1950 Requested By: Aries Barreto Order Number: [id number] MD: Hector Grimes Measurements Intervals [place] Rate: 108 P: 10 MT: 160 QRS: -33 QRSD: 94 T: 24 QT: 347 QTc: 465 Interpretive Statements Sinus tachycardia Low voltage, precordial leads Anteroseptal infarct, old Compared to ECG 08/27/2019 12:07:28 Low QRS voltage now present Sinus rhythm no longer present Myocardial infarct finding still present Electronically Signed On 02-07-2020 14:21:30 CDT by Hector Grimes [email or web address] <ELECTRONICALLY SIGNED> By: Hector Grimes MD, FACC 02/07/20 1421 1414 1414 Hector Grimes MD, [facility] /EPI
[2020-02-07] MEDS ORDERED: PROTONIX40 M2 PO (14:35)
[2020-02-07] MEDS ORDERED: TRIAMTERENE/HCT1 CA1 PO (14:37)
[2020-02-07 14:38] LABS: HEMATOCRIT 37.2 % (37.0-47.0); HEMOGLOBIN 12.5 gm/dL (12.0-15.0); MCH 32.6 pg (26.0-34.0); MCHC 33.7 g/dL (28.0-37.0); MCV 96.8 fL (80.0-100.0); PLATELET COUNT 348 thou/uL (150-400); RBC 3.84 mil/uL (4.20-5.00); RDW 16.4 % (10.5-14.5); WBC 5.2 thou/uL (4.0-11.0)
[2020-02-07 14:57] LABS: ANION GAP 26 mmol/L (7-16); BUN 68 mg/dL (7-18); CALCIUM 9.6 mg/dL (8.5-10.1); CHLORIDE 100 mmol/L (98-107); CO2 12 mmol/L (21-32); GLUCOSE 125 mg/dL (74-106); POTASSIUM 3.6 mmol/L (3.5-5.1); SODIUM 138 mmol/L (136-145)
[2020-02-07 14:59] LABS: TROPONIN-I <0.06 ng/mL (<0.06)
[2020-02-07 15:28] LABS: ABSOLUTE NEUTROPHILS 4.5 thou/uL (1.4-8.2); NUCLEATED RBCS 1 /100WBC; PLATELET ESTIMATE NORMAL
[2020-02-07 15:52] LABS: URINE BLOOD 3+ (Negative); URINE CLARITY SL CLOUDY; URINE COLOR YELLOW; URINE GLUCOSE-RANDOM* NEGATIVE (Negative); URINE KETONES 1+ (Negative); URINE LEUKOCYTES-REFLEX NEGATIVE (Negative); URINE NITRITE-REFLEX NEGATIVE (Negative); URINE PROTEIN (DIPSTICK) 1+ (Negative); URINE SPECIFIC GRAVITY 1.025 (1.005-1.035); URINE UROBILINOGEN 0.2 E.U./dl (0.2-1.0)
[2020-02-07 15:54] LABS: ICTOTEST (BILI CONFIRMATORY) Negative (Negative); URINE BILIRUBIN NEGATIVE (Negative)
[2020-02-07 16:00] LABS: AMP/METHAMP Negative (Negative); BARBITURATES Negative (Negative); BENZODIAZEPINES Negative (Negative); COCAINE Negative (Negative); METHADONE Negative (Negative); OPIATES Negative (Negative); PCP Negative (Negative); SQUAMOUS 4-10 Moderate /LPF (0-3)
[2020-02-07 16:01] LABS: BACTERIA-REFLEX 1-9 Few /HPF (None Seen); CASTS None Seen /LPF (None Seen); CRYSTALS None Seen /LPF (None Seen); URINE RBC >20 Many /HPF (0-2); URINE WBC-REFLEX 0-5 Rare /HPF (0-5)
[2020-02-07 16:24] LABS: BE(vivo) -15.5 mmol/L (-2 to +3); HCO3 8.3 mmol/L (22.0-26.0); PO2 78.6 mmHg (80.0-100.0); sO2 95.1 % (92.0-98.0)
[2020-02-07 16:25] LABS: PCO2 16.5 mmHg (35.0-45.0)
--- NOTE | 2020-02-07 17:06 | NUR ---
DIMAS FLORENCE SIGHT: [phone]
--- NOTE | 2020-02-07 19:35 | NUR ---
PT CARE ASSUMED AT 1730. ASSESSMENT CHARTED. MEDICATION CHARTED. DR BOWDEN CONTACTED. ETOH WITHDRAWAL WITH TREMORS. RAC IV. ASSIST X 2. SINUS TACHYCARDIA. THIAMINE IVPB PASSED TO NOC SHIFT, NOT AVAILABLE CURRENTLY.
[2020-02-08] VITALS (40 sets, daily range): BP systolic 129–191; BP diastolic 73–103
--- NOTE | 2020-02-08 00:26 | NUR ---
CALLED TO NOTIFY DR. BOWDEN OF CONCERNS REGARDING PATIENT STATUS, INCLUDING TEMP 101.3, BP 187/106, HR 133, RR 25-30, PATIENT ANSWERS ORIENTATION QUESTIONS APPROPIRIATELY BUT ALSO STOPS AND STARTS SENTENCES INTERMITTENTLY AND NEEDS TO BE REDIRECTED BACK TO TASK AT HAND. DENIES PAIN, HEADACHE, NAUSEA, HALLUCINATIONS, BUT ALSO APPEARS TO LOOK AROUND ROOM AND HAS FULL BODY TREMORS.BREATHING IS LABORED, LUNGS CONT TO BE CLEAR/DIM. DISCUSSED LABS AND CXR. ORDERS TO COVID TEST AND SEND TO ICU, ORDERS GIVEN FOR TYLENOL. CALLED REPORT TO ALLEN ART IN ICU, ALL QUESTIONS ANSWERED AND PT TRANSFERRED TO [facility] WITH ALL BELONGINGS, CARE SURRENDERED
--- NOTE | 2020-02-08 00:51 | NUR ---
PT TRANSFERED FROM TO ICU ROOM 236 AROUND 0010. PT IS ORIENTED TO PERSON AND PLACE. SHE IS OTHERWISE CONFUSED AND TALKING TO SOMEONE/SOMETHING ELSE IN THE ROOM. SHE APPEARS TO BE HAVING HALLUCINATIONS. SHE IS RESTLESS, TACHYPENIC, AND TACHYCARDIC. LORAZEPAM GIVEN FOR ELEVATED CIWA SCORE. RECTAL TYLENOL GIVEN FOR FEVER. IVF INFUSING ORDERED. FALL PRECAUTIONS IN PLACE. WILL MONITOR CLOSELY.
--- NOTE | 2020-02-08 01:35 | NUR ---
0135 - UPDATED DR BOWDEN ON PT SYMPTOMS; HR 120S, SBP >160S, RR 40S, RESTLESSNESS, HALLUCINATIONS. ORDERS RECEIVED. WILL CONTINUE TO MONITOR.
--- NOTE | 2020-02-08 05:22 | NUR ---
PRN HALDOL AND LORAZEPAM GIVEN INDICATED FOR ETOH WITHDRAWAL. PT'S HR NOW 110S. RR 20S-30S. BP HAS ALSO IMPROVED. PT IS RESTING MORE CALMLY IN BED. SHE IS OCCASSIONALLY RESTLESS WITH HER LEGS, BUT DOES NOT ATTEMP TO GET OUT OF BED OR PULL AT LINES. MACARIO PLACED PER DR ORDER. GOOD URINE OUTPUT. FEVER IMPROVING. COVID TEST RESULT NEGATIVE. FALL PRECAUTIONS IN PLACE. PROGRESSING SLOWLY TOWARD POC GOALS. WILL GIVE REPORT TO ONCOMING NURSE.
--- NOTE | 2020-02-08 11:30 | NUR ---
ASSESSMENTS AND INTERVENTIONS DOCCUMENTED. DR. BOWDEN PAGED THIS AM DUE TO PATIENT BP. DR. BOWDEN ROUNDING. ORDERS RECIEVED. RN PAGING DR. BOWDEN AGAIN AT 11;30 DUE TO HYPERTENSION.
[2020-02-08 12:03] LABS: HEMATOCRIT 33.5 % (37.0-47.0); HEMOGLOBIN 11.2 gm/dL (12.0-15.0); MCH 32.4 pg (26.0-34.0); MCHC 33.6 g/dL (28.0-37.0); MCV 96.7 fL (80.0-100.0); RBC 3.46 mil/uL (4.20-5.00); RDW 16.2 % (10.5-14.5); WBC 7.3 thou/uL (4.0-11.0)
[2020-02-08 12:14] LABS: CALCIUM 8.9 mg/dL (8.5-10.1); CREATININE 2.1 mg/dL (0.6-1.0)
[2020-02-08 12:17] LABS: POTASSIUM 2.6 mmol/L (3.5-5.1)
[2020-02-09] VITALS (16 sets, daily range): BP systolic 151–186; BP diastolic 61–100
[2020-02-09 04:16] LABS: MAGNESIUM 1.5 mg/dL (1.8-2.4); PHOSPHORUS 1.2 mg/dL (2.5-4.9)
--- NOTE | 2020-02-09 06:00 | NUR ---
PT IS CALM AND DROUSY. OCC MOANS REMAINS IN SINUS TACH LUNGS DIMINISHED BILAT. 1000 CC UO THIS SHIFT. REMAINS HYPERTENSIVE. HAD 2 DOSES OF HYDRALAZINE TONIGHT. HALDOL AND ATIVAN PRN. REMAINS ON ALCOHOL WITHDRAWL PROTOCAL. BATHED. WILL CONT TO MONITOR.
[2020-02-09 07:47] LABS: CALCIUM 9.5 mg/dL (8.5-10.1); CREATININE 1.9 mg/dL (0.6-1.0); POTASSIUM 3.5 mmol/L (3.5-5.1)
--- NOTE | 2020-02-09 12:02 | NUR ---
chart review. cm unable to visit with ruperto. cm called son emily, no answer and left message requested a call back. noted pt was here in august 2019. she lives alone, no steps. has walker and life alert that she doesnt always use. hx of falls in past. had charles kenney in past. pcp dr neal. will cont following as needed for dc needs.
--- NOTE | 2020-02-09 12:59 | NUR ---
PATIENT DROWSY ALL MORNING AND MUMBLING SOME INCOMPREHENSIBLE SOUNDS. HYPERTENSIVE AND PRN HYDRALAZINE ADMINISTERED. SON CAME IN TO VISIT AND WAS NOTIFIED THAT PATIENT WILL BE TRANSFERRED OUT OF ICU. REPORT CALLED TO MARÍA IN CCU AND PATIENT TRANSFERRED TO 216 WITH BELONGINGS.
--- NOTE | 2020-02-09 15:53 | NUR ---
REPORT TAKEN FROM [facility] ICU/RN. PT CALM/RESTING COMFORTABLY IN BED WITH CALL LIGHT IN REACH. SINUS TACH ON THE MONITOR. VSS. NO PAIN REPORTED BY THE PT. WILL CONTINUE TO MONITOR. PT IN ROOM 216. PT FAMILY NOTIFIED PER [facility] ICU/RN.
[2020-02-10] VITALS (79 sets, daily range): BP systolic 37–178; BP diastolic 21–112
--- NOTE | 2020-02-10 01:25 | NUR ---
PT BLOOD PRESSURE IS HIGH. PAGED DR. BOWDEN IN REGARDS TO BLOOD PRESSURE. PT IS ETOH , COCAINE ABUSE AND POT. CIWA SCORE IS ZERO PT IS DROWSY AND LETHARGIC. NOT ALERT OR ORIENTED. JUST SLEEPING NO MEDS GIVEN EITHER. LUNGS ARE CLEAR ON ROOM AIR. NO IMPULSIVE OR AGITATED JUST SLEEPING. NO HALLUCINATIONS NOTED. REMAINS A FULL CODE AT THIS TIME PER CHART. CONTINUE TO ASSESS AND MONITOR PER MICK.
[2020-02-10 09:03] LABS: HEMATOCRIT 37.2 % (37.0-47.0); HEMOGLOBIN 12.7 gm/dL (12.0-15.0); MCH 32.1 pg (26.0-34.0); MCHC 34.3 g/dL (28.0-37.0); MCV 93.8 fL (80.0-100.0); RBC 3.96 mil/uL (4.20-5.00); RDW 16.8 % (10.5-14.5); WBC 15.1 thou/uL (4.0-11.0)
[2020-02-10 09:27] LABS: ALBUMIN 2.4 g/dL (3.4-5.0); CALCIUM 10.2 mg/dL (8.5-10.1); TOTAL BILIRUBIN 4.1 mg/dL (0.2-1.0); TOTAL PROTEIN 8.1 g/dL (6.4-8.2)
[2020-02-10 10:29] LABS: HCO3 16.8 mmol/L (22.0-26.0); PO2 66.6 mmHg (80.0-100.0); sO2 95.3 % (92.0-98.0)
[2020-02-10 10:30] LABS: PCO2 21.6 mmHg (35.0-45.0)
--- NOTE | 2020-02-10 12:24 | NUR ---
PT. CONTINUES O BREAHE FAST AND HER ABG'S WERE DONE THIS A, WITH A CO2-21 AND LOWER SAO2 VALUES WELL. WILL LET MEDICAL TEAM KNOW OF PRESENTATION CHANGES AT THIS TIME. OVERAL SHE LOOKS POOR TO ME AND DFINATELY METABOLIC/RESPIRATORY CHANGES OVERALL.
--- NOTE | 2020-02-10 16:09 | NUR ---
13:00-PT. CONTINUES TO DETERIORATE OVERALL WITH RUNNING A FEVER NOW, ABG'S ARE BACK AND TEAMN AWARE OF SUCH. RR IS INCREASING UP TO 36 NOW WITH SATURATIONS=32. NO NEURO RESPONSE UNLESS STERNAL RUB.
--- NOTE | 2020-02-10 16:29 | NUR ---
SPOKE TO DR BOWDEN AND THE TEAM IS GOING TO TRANSFER HER BACK TO ICU FOR HER STAUS CHANGES NOTED TODAY. HAS RIGHT KNEE SEVERE MOTTLING NOTED ON RIGHT LOWER EXTREMETIES-THIS IS A NEW THING NOT SEEN THIS AM. SPOKE TO NEPHROLOGY MD AND HE IS ALL FOR HER BEING MOVED WELL TO ICU, SOONE RTHEN LATER. CALLED FEED MILL MANAGER AND INFORMED HER OF SUCH, AWAITING A BED ASSIGNEMENT, K+ IS RUNNING AND IVF WELL NOW PRESCRIBED.
--- NOTE | 2020-02-10 16:46 | NUR ---
NURSING BED ASSIGNED XFER TO ROOM #243-WILL CALL REPORT IN TE NEXT FEW MINUTES. PT. CONTINUES TO BE NON RESPONSIVE ONLY TO DEEP STIMULATION. RIGHT LEG MOTTLING, APPEARS SEPTIC OVERALL TO ME BASED ON MANY INDICATION TREATING SUCH.
--- NOTE | 2020-02-10 18:42 | NUR ---
1650 PT. HAS BEEN SINUS TACHYCARDIA SINCE ABOUT 13:30 PM IN THE 120'S NO ECTOPY. HAS A FEVER NOW. URINE OUTPUT IS DECREASING. O2 SATURATIONS ARE 92%-NOT 32% CHARTED ACCIDENTALLY PRIOR NOTE. MUCH MORE TACHYPENEIC NOW IN HIGH30'S-40'S WAS 20'S THIS AM. LOWER LEG MOTTLING IS OBSERVED BILATERALLY BUT MUCH MORE PRONOUNCED IN RIGHT KNEE AREA, PEDAL PULSES ARE 1+ BILATERALLY BELOW. HAVE NOT SEEEN OR HEARD FROM ANY FAMILY TODAY WILL TRY TO CALL LATER ON WHEN TIME ALLOWS. 2 PERSON TRANSFER TO ICU NOW. BLOOD SUGAR CHECKED IN OUR UNIT =118.
--- NOTE | 2020-02-10 18:48 | NUR ---
TRIED TO CALL FAMILY WAS NOT ABLE TO REACH ENRIQUETA CALL WOULD GO THROUGH AND THEN NO ONE ANSWERED? WAS UNABLE TO LEAVE MESSAGE. SPOKE TO CHRISTINA RN IN ICU AND THEY WILL TRY ON THEIR END TO REACH FAMILY WELL FOR STAUT UPDATES/CHANGES.
[2020-02-10 19:05] LABS: BE(vivo) -9.1 mmol/L (-2 to +3); HCO3 14.2 mmol/L (22.0-26.0); PO2 361.8 mmHg (80.0-100.0); pH 7.378 (7.360-7.450); sO2 99.8 % (92.0-98.0)
[2020-02-10 19:06] LABS: PCO2 24.7 mmHg (35.0-45.0)
[2020-02-10 20:17] LABS: HEMATOCRIT 39.1 % (37.0-47.0); HEMOGLOBIN 13.1 gm/dL (12.0-15.0); MCH 31.9 pg (26.0-34.0); MCHC 33.5 g/dL (28.0-37.0); MCV 95.2 fL (80.0-100.0); PLATELET COUNT 177 thou/uL (150-400); RBC 4.11 mil/uL (4.20-5.00); RDW 16.5 % (10.5-14.5); WBC 13.4 thou/uL (4.0-11.0)
[2020-02-10 20:27] LABS: ALBUMIN 2.2 g/dL (3.4-5.0); CALCIUM 9.5 mg/dL (8.5-10.1); CREATININE 2.9 mg/dL (0.6-1.0); POTASSIUM 3.8 mmol/L (3.5-5.1); TOTAL BILIRUBIN 4.3 mg/dL (0.2-1.0); TOTAL PROTEIN 7.3 g/dL (6.4-8.2)
[2020-02-10 20:28] LABS: TROPONIN-I 1.12 ng/mL (<0.06)
--- NOTE | 2020-02-10 20:29 | NUR ---
PATIENT ARRIVES TO ICU AT 1745 FROM CCU. PATIENT NONRESPONSIVE. RA ON ARRIVAL. DR GARCIA AT BEDSIDE. RIGHT IJ CENTRAL LINE PLACED TRIPLE LUMEN. PLACED AT 1810. PATIENT INTUBATED AT 182 7.5 ET TUBE. 25 LIP. OG PLACED. 70 LIP. LIS. PATIENT 500ML BOLUS FOR MAPS 40'S. LEVOPHED INITIATED AT 20MCG/MIN, NOW TO 15MCG/MIN. BEAR HUGGER PLACED ON PATIENT FOR HYPOTHERMIC. RESTRAINTS INITIATED. FAMILY NOTIFIED ABOUT PATIENT CONDITION.
[2020-02-10 20:37] LABS: ABSOLUTE NEUTROPHILS 11.8 thou/uL (1.4-8.2); NUCLEATED RBCS 6 /100WBC
[2020-02-10 20:38] LABS: ANISOCYTOSIS 2+; POLYCHROMASIA OCCASIONAL; TARGET CELLS OCCASIONAL
--- NOTE | 2020-02-10 22:29 | NUR ---
1899 - BEDSIDE REPORT RECEIVED FROM ALLEN BAILEY 1914 - RT ALLIE MADE THIS RN AWARE OF CRITICAL ABG'S 1928 - SPOKE WITH SISTER (AMANDEEP) REGARDING PATIENTS CONDITION. 1945 - SPOKE WITH DR. GARCIA REGARDING CRITICAL ABG'S, AND PT CONDITIONS, NEW ORDERS RECEIVED. 2034 - SPOKE WITH DR. GARCIA REGARDING A CRITICAL TROPONIN AND ELEVATED LACTIC ACID. NEW ORDERS RECEIVED. 2104 - SPOKE WITH SON (NAMAN) REGARDING PTS CONDITION, PT MOVING TO ICU, AND EDUCATED SON ON CHOOSING TWO DESIGNATED PT REPRESENTATIVES THAT WE CAN TALK TO. 2116 - SPOKE WITH DAUGHTER (ERNA - PTS DPOA) REGARDING PTS CONDITION, AND THE PTS WISHES. ERNA REPORTED THAT PT HAS A LIVING WILL STATING SHE IS A DNR. 2129 - SPOKE WITH DR. GARCIA REGARDING ERNA'S WISHED TO MAKE THE PT A NO CODE. DR. GARCIA UPDATED ON PTS CONDITIONS. HE AGREES WITH MAKING THE PT A NO CODE BUT REPORTED HE WILL CALL DR. BOWDEN TO UPDATE HIM AND DISCUSS CODE STATUS.
[2020-02-11] VITALS (74 sets, daily range): BP systolic 72–129; BP diastolic 39–75
[2020-02-11 01:27] LABS: URINE BILIRUBIN 2+ (Negative); URINE BLOOD 3+ (Negative); URINE CLARITY CLOUDY; URINE COLOR ORANGE; URINE GLUCOSE-RANDOM* NEGATIVE (Negative); URINE KETONES NEGATIVE (Negative); URINE LEUKOCYTES-REFLEX NEGATIVE (Negative); URINE NITRITE-REFLEX NEGATIVE (Negative); URINE PROTEIN (DIPSTICK) 3+ (Negative); URINE SPECIFIC GRAVITY 1.025 (1.005-1.035)
[2020-02-11 01:46] LABS: BACTERIA-REFLEX 1-9 Few /HPF (None Seen); FINE GRANULAR CASTS 4-10 Moderate /LPF (None Seen); HYALINE CASTS 4-10 Moderate /LPF (None Seen); MUCUS 4-6 Moderate strn/LPF (None Seen); SQUAMOUS 4-10 Moderate /LPF (0-3); URINE RBC 3-10 Few /HPF (0-2); URINE WBC-REFLEX 0-5 Rare /HPF (0-5)
[2020-02-11 01:47] LABS: CELLULAR CASTS 4-10 Moderate /LPF (None Seen); COARSE GRANULAR CASTS 0-3 Few /LPF (None Seen); CRYSTALS None Seen /LPF (None Seen)
[2020-02-11 07:07] LABS: HEMATOCRIT 31.9 % (37.0-47.0); MCH 31.3 pg (26.0-34.0); MCHC 33.2 g/dL (28.0-37.0); MCV 94.4 fL (80.0-100.0); PLATELET COUNT 137 thou/uL (150-400); RBC 3.38 mil/uL (4.20-5.00); RDW 16.6 % (10.5-14.5); WBC 11.4 thou/uL (4.0-11.0)
[2020-02-11 07:10] LABS: INR 1.4; PROTIME 14.2 Seconds (9.3-11.4)
[2020-02-11 07:16] LABS: ALBUMIN 1.9 g/dL (3.4-5.0); CALCIUM 8.8 mg/dL (8.5-10.1); CREATININE 3.5 mg/dL (0.6-1.0); POTASSIUM 3.2 mmol/L (3.5-5.1); TOTAL BILIRUBIN 4.8 mg/dL (0.2-1.0); TOTAL PROTEIN 6.6 g/dL (6.4-8.2)
--- NOTE | 2020-02-11 07:17 | NUR ---
Pt TRANSFERRED TO ICU. Pt ON HOLD FOR O.T. DUE TO CHANGE IN STATUS. NEED NEW ORDERS WHEN/IF APPROPRIATE.
[2020-02-11 07:21] LABS: BE(vivo) -1.7 mmol/L (-2 to +3); HCO3 20.2 mmol/L (22.0-26.0); PCO2 26.3 mmHg (35.0-45.0); PO2 148.2 mmHg (80.0-100.0); pH 7.504 (7.360-7.450); sO2 99.1 % (92.0-98.0)
--- NOTE | 2020-02-11 07:50 | NUR ---
ORDERS RECEIVED FOR EVAL AND TREAT HOWEVER Pt TRANSFERRED TO ICU. WILL PLACE ON HOLD AND AWAIT NEW ORDERS WHEN APPROPRIATE
[2020-02-11 08:15] LABS: HEMOGLOBIN 10.6 gm/dL (12.0-15.0)
[2020-02-11 11:05] LABS: ABSOLUTE NEUTROPHILS 10.1 thou/uL (1.4-8.2); NUCLEATED RBCS 4 /100WBC; PLATELET ESTIMATE NORMAL
--- NOTE | 2020-02-11 15:35 | NUR ---
DPOA DAUGHTER ERNA BLACK AT PATIENT BEDSIDE AT 1416
--- NOTE | 2020-02-11 16:03 | NUR ---
THIS 3RD GRADE TEACHER WAS NOTIFIED BY R.NVilma ABOUT UPCOMING EXTUBATION. PT.'S DAUGHTER, ERNA, WAS PRESENT. WE DID LIFE REVIEW AND DISCUSSED HER MEMORIES OF HER MOTHER. WE CONCLUDED IN PRAYER. LITERATURE WAS GIVEN TO FAMILY ABOUT NEXT STEPS AFTER A LOVED ONE PASSES. SHE SAID HER BROTHERS ARE TAKING CARE OF FINAL ARRANGEMENTS. PT. IS ZOROASTRIANISM AND GNOSTICIST MichaelCodyNEFTALI STAFFORD WILL HAVE REMEMBERANCE. NO HOME STATED YET. THIS 3RD GRADE TEACHER NOTIFIED SECURITY STAFF OF IMPENDING AFTER EXTUBATION. THE FAMILY HAD LEFT AND TAKEN POSSESSIONS PRIOR TO THE PATIENT PASSING.
--- NOTE | 2020-02-11 17:58 | NUR ---
PATIENT COMFORT CARES. PATIENT EXTUBATED AT 1600 TO ROOM AIR. DAUGHTER ERNA AT BEDSIDE PRIOR TO EXTUBATION. PATIENT TRANSFERRING TO ER FOR CARE.
--- NOTE | 2020-02-11 18:26 | NUR ---
PT ARRIVES FROM ICU TO ED 17. APPEARS TO BE RESTING COMFORTABLY. PLACED ON MONITOR.
[2020-02-12 01:02] VITALS: BP 114/54
--- NOTE | 2020-02-12 03:24 | NUR ---
Assumed pt care at 1900. Pt is unresponsive. Pt is palliative care. Assessment completed and documented. Medication administered. Continue to monitor. Continue to monitor
[2020-02-12 08:20] VITALS: BP 108/61
--- NOTE | 2020-02-12 12:13 | NUR ---
ON-GOING ASSESSMENT: CM REVIEWED CHART AND SPOKE WITH ATTENDING. PT HAS BEEN MADE COMFORT CARE. PHYSICIAN STATES TO SEE HOW PATIENT DOES OVERNIGHT AND WILL FOLLOW UP IN THE AM. CM WILL CONTINUE TO FOLLOW.
--- NOTE | 2020-02-12 15:05 | NUR ---
ASSUMED CARE OF PT AT 0700. PT PLACED ON COMFORT CARE LAST NIGHT. PT IS NON RESPONSIVE. COMFORT CARE MEDICATIONS GIVEN AT NEEDED. SPOKE WITH PT TERRY UMANZOR TO UPDATE ON PT STATUS. WILL CONTINUE TO MONITOR.
[2020-02-12 19:41] VITALS: BP 120/70
--- NOTE | 2020-02-12 23:50 | NUR ---
1900 ASSUMED CARE OF PT, BASELINE ASSESSMENT COMPLETED, PT BARELY OPENS EYES WITH MOVEMENT, RESP RAPID AT 24 AND SHALLOW, PULSE 100, EXTREMITIES WITH WEEPING EDEMA AND COOL TO TOUCH, CAP REFILL < 3 SEC. O2 1L NC FOR COMFORT. PT DOES NOT APPEAR UNCOMFORTABLE, WILL CONTINUE TO REPOSITION, MACARIO CATH IN PLACE WITH ADEQUATE URINE OUTPUT, WILL CONTINUE TO MONITOR. 2030 DR BOWDEN NOTIFIED OF BLOOD CULTURE RESULTS.
[2020-02-13 03:28] VITALS: BP 121/58
[2020-02-13 07:25] VITALS: BP 149/79
--- NOTE | 2020-02-13 08:15 | NUR ---
Nutrition follow up: Pt was extubated late in day on 02/10; made comfort cares. Was noted by nursing to be nonresponsive yesterday, overnight nursing notes indicate pt barely opens eyes w/ movement. Given pt condition and goals of cares, no further nutrition interventions indicated at this time. RD will sign off.
--- NOTE | 2020-02-13 09:13 | NUR ---
ON-GOING ASSESSMENT: CM REVIEWED CHART AND SPOKE WITH ATTENDING. PT IS ON COMFORT CARE AND ATTENDING SPOKE WITH PATIENTS FAMILY. PLAN IS FOR PATIENT TO REMAIN HERE AT THE HOSPITAL AND CONTINUE COMFORT MEASURES. ATTENDING STATES NO NEED TO TRANSFER PATIENT AT THIS TIME AND SHE WILL REMAIN IN HOUSE HE FEELS PATIENT MAY PASS SOON. HE REPORTS FAMILY DOES NOT FEEL THEY NEED HOSPICE HOUSE AND THEY HAVE GOOD SUPPORT AT HOME. PLANS ARE FOR PATIENT TO REMAIN IN HOUSE ON COMFORT MEASURES. CM WILL CONTINUE TO FOLLOW TO ASSIST NEEDED.
--- NOTE | 2020-02-13 12:40 | NUR ---
THIS SOCIAL SECURITY BENEFITS INTERVIEWER WAS PRESENT AT TIME OF EXTUBATION OF 02/11/20. (SEE NOTE) THIS SOCIAL SECURITY BENEFITS INTERVIEWER WAS CON[facility] WONDERING ABOUT PARTICULARS IF PENDING WAS EMMINENT. THE [facility] HAD BEEN CONTACTED BY A SOCIAL SECURITY BENEFITS INTERVIEWER FROM HERE, UPON THE REQUEST OF THE DOCTOR. THIS SOCIAL SECURITY BENEFITS INTERVIEWER SPOKE TO THE FOOD QUALITY TESTER AND NURSE. I RETURNED THE CALL TO THE [facility] AND MADE ADMINISTRATION AWARE HE MIGHT COME IN AFTER ON SUNDAY OR SUNDAY. I ALSO CONTACTED THE DOCTOR TO LET HIM KNOW THE OUTCOME AT [phone].
--- NOTE | 2020-02-13 14:21 | NUR ---
PT CARE ASSUMED AT 0700. PT SEDATED WITH AIR HUNGER. PER FAMILY REQUEST AND DR. BOWDEN INCREASING MORPINE TO 2MG EVERY HOUR. TEMPERATURE OF 102.1 AXILLARY. MD AWARE AND WILL NOT CONTINUE TO TREAT. ON 1L O2 FOR COMFORT. MOUTH MOISTENED AND Q4 TURNS FOR COMFORT. FAMILY REQUESETING RABI TO SEE PATIENT. FATHER SATURNINO INFORMED. FAMILY NOTIFIED. PER MD PT NOT RECOMMENDED FOR HOSPICE HOUSE. WILL CONTINUE TO MONITOR.
[2020-02-13 15:48] VITALS: BP 122/63
[2020-02-13 18:46] VITALS: BP 118/57
[2020-02-13 22:33] VITALS: BP 97/42
--- NOTE | 2020-02-14 03:02 | NUR ---
UPON SHIFT REPORT, PT NOTED TO HAVE WHIT GAYLE RESPIRATIONS. PT NONRESPONSIVE, FLACC OF 0, ALL EXTREMITIES FLACCID, MOTTLING NOTED THROUGHOUT. PT REMAINS ON COMFORT CARE. AT APPROX 2245, PT NOTED TO HAVE INCREASED EXPIRATORY PHASE WITH INTERMITTENT MOANING. PT GIVEN 2MG OF PRN IV MORPHINE AT 2250. PT ASSESSED WITH ELEVATED TEMP, COOLING MEASURES INTIATED BY REMOVING EXCESS LAYERS AND USING FAN. COMMUNICATED WITH PT DAUGHTER/DPOA ERNA TO PROVIDE UPDATE AND EMOTIONAL SUPPORT. PT DAUGHTER/DPOA ERNA REQUESTS TO HAVE MEDICAL INFORMATION AND UPDATES SHARED WITH HER ONLY. AT APPROX 2254, PT NOTED TO HAVE APNEA UP TO 1 MINUTE, RIGHT EYE OPENING, RIGHT EYE FIXED. AT APPROX 2305, PT CONTINUES TO MOANING INTERMITTENTLY BETWEEN RESPIRATIONS. PT GIVEN 1MG PRN IV MORPHINE AT 2312. PT CONTINUES TO HAVE APNEA AND MOANING IN BETWEEN RESPIRATIONS. PT GIVEN 1MG PRN IV MORPHINE AT 2347. PT SISTER, AMANDEEP CONTACTED UNIT TO SAY GOODBYES TO PT, PHONE PLACED NEAR PT EAR AT APPROX 0003. AT APPROX 0003, PT APNEIC, PULSE PALPABLE BECOMING WEAK. PT TOD PRONOUNCED AT 0008. ERNA NOTIFIED, ERNA TO NOTIFY REMAINDER OF PT FAMILY. DR. BOWDEN NOTIFIED, RECEIVED ORDERS TO PRONOUCE, DR. BOWDEN TO SIGN CERTIFICATE. CONSULTING PHYSCIANS NOTIFIED. MTN NOTIFIED, PT NOT ELIGIBLE FOR ORGAN DONATION, REFERENCE NUMBER [id number]. ALL TUBING REMOVED INCLUDING NASAL CANNULA, TRIPLE LUMEN RIGHT SUBCLAVIAN, AND MACARIO CATHETER. PERICARE PEFORMED, PLACED IN DESIGNATED BAG WITH APPROPRIATE LABELING. SECURITY TO TRANSPORT PT OFF UNIT.
== END 2020-02-14 00:08 | DRG 871 ==
LOC: ER 13:49 → EROBS 16:59 → ICU 16:59 → 2N 17:15 → ICU 02-08 00:27 → 2N 02-09 14:16 → ICU 02-10 16:53 → EROBS 02-11 19:12 → SICU 02-11 22:41 → 4S 02-12 18:43
PROVIDERS: Nurse Practitioner; Pediatrics; Specialist; ADMIT Family Medicine; ATTEND Family Medicine
DX: A41.9 Sepsis, unspecified organism (principal); G93.41 Metabolic encephalopathy; N17.0 Acute kidney failure with tubular necrosis; J96.00 Acute respiratory failure, unspecified whether with hypoxia or hypercapnia; N39.0 Urinary tract infection, site not specified; F10.239 Alcohol dependence with withdrawal, unspecified; E87.0 Hyperosmolality and hypernatremia; K92.0 Hematemesis; F03.90 Unspecified dementia, unspecified severity, without behavioral disturbance, psychotic disturbance, mood disturbance, and anxiety; I95.9 Hypotension, unspecified; E87.8 Other disorders of electrolyte and fluid balance, not elsewhere classified; E86.0 Dehydration; K74.60 Unspecified cirrhosis of liver; I12.9 Hypertensive chronic kidney disease with stage 1 through stage 4 chronic kidney disease, or unspecified chronic kidney disease; F19.10 Other psychoactive substance abuse, uncomplicated; Y90.9 Presence of alcohol in blood, level not specified; N18.32 Chronic kidney disease, stage 3b; Z20.828 Contact with and (suspected) exposure to other viral communicable diseases; Z51.5 Encounter for palliative care; Z90.710 Acquired absence of both cervix and uterus; Z79.899 Other long term (current) drug therapy; Z88.0 Allergy status to penicillin; Z87.891 Personal history of nicotine dependence
CPT/HCPCS: 10078; 10081; 10102; 15001; 15002